=== PATIENT | female | born 1975 | race African-American/Black ===

== ENCOUNTER 2016-10-12 13:02 | Emergency (ER) | payer OTHER ==
[~2016-10-12] VITALS: Ht 160 cm; Wt 68.0 kg
[~2016-10-12 13:02] MED LIST: BACTRIM DS TAB1 EAC1 ORAL; IBUPROFEN600 MG ORAL; NAPROSYN500 M1 ORAL; NITROFURANTOIN100 M2 ORAL; NKM; NORCO 5-325 TA1 EACH ORAL; ZOFRAN ODT4 MG ORAL
[2016-10-12 13:38] VITALS: BP 133/85
[2016-10-12 13:53] LABS: BASOPHILS % (AUTO) 1.8 % (0.0-2.0); EOSINOPHILS % (AUTO) 4.1 % (0.0-3.0); MEAN CORPUSCULAR HEMOGLOBIN 30.6 PG (27.0-31.0); MEAN CORPUSCULAR HGB CONC 32.7 G/DL (32.0-36.0); MEAN CORPUSCULAR VOLUME 94 FL (80-99); MEAN PLATELET VOLUME 6.7 FL (6.5-10.1); NEUTROPHILS % (AUTO) 53.1 % (45.0-75.0); PLATELET COUNT 305 K/UL (150-450); RED BLOOD COUNT 3.96 M/UL (4.20-5.40); RED CELL DISTRIBUTION WIDTH 12.2 % (11.6-14.8); WHITE BLOOD COUNT 5.3 K/UL (4.8-10.8)
[2016-10-12 13:54] LABS: APPEARANCE,URINE CLEAR; KETONES,URINE NEGATIVE (NEGATIVE); LEUKOCYTE ESTERASE ,URINE NEGATIVE (NEGATIVE); NITRITE,URINE NEGATIVE (NEGATIVE); PH,URINE 7 (4.5-8.0); PROTEIN,URINE NEGATIVE (NEGATIVE); UROBILINOGEN,URINE NORMAL MG/DL (0.0-1.0)
--- NOTE | 2016-10-12 14:01 | Emergency Room Report ---
History of Present Illness General Chief Complaint: Vaginal Present Illness HPI The pt is a 40 yo F Presenting for a 9/10 lower abdominal pain which began 2 days prior. The patient states that she has a history of ovarian cyst. The patient states that her last normal menstrual period was one week prior and noticed heavy bleeding.The patient states that she has noticed vaginal spotting which began 2 days prior. The pain does not radiate and there are no known exacerbating or relieving factors. The patient denies any other vaginal discharge and denies dysuria, hematuria, increased urinary frequency, flank pain , nausea, vomiting, , chills Allergies: Coded Allergies: NO KNOWN ALLERGIES (Unverified Allergy, Unknown, 08/22/16) Patient History Past Medical History: see triage record Pertinent Family History: none Last Menstrual Period: last week Now: No Reviewed Nursing Documentation: PMH: Agreed, PSxH: Agreed Nursing Documentation-PMH Past Medical History: No History, Except For Hx Neurological Problems: Yes - Meningitis 1993 Hx Cerebrovascular Accident: Yes - mild stroke 2 years Review of Systems All Other Systems: negative except mentioned in HPI Physical Exam Vital Signs Date Time Temp Pulse Resp B/P Pulse Ox O2 Delivery O2 Flow Rate FiO2 10/12/16 13:10 98.2 79 18 146/87 98 10/12/16 13:38 Room Air Sp02 EP Interpretation: reviewed, normal General Appearance: no apparent distress, alert, GCS 15, non-toxic Head: normocephalic, atraumatic Eyes: bilateral eye PERRL, bilateral eye normal inspection ENT: hearing grossly normal, normal pharynx, no angioedema, normal voice Neck: full range of motion, supple/symm/no masses Respiratory: chest non-tender, lungs clear, normal breath sounds, no wheezing, speaking full sentences Gastrointestinal: soft, no mass, non-distended, no guarding, tenderness - suprapubic Genitourinary: normal inspection, no CVA tenderness Musculoskeletal: back normal, gait/station normal, normal range of motion, non- tender, calf tenderness Neurologic: alert, oriented x3, responsive, motor strength/tone normal, sensory intact, speech normal Psychiatric: judgement/insight normal, memory normal, mood/affect normal, no suicidal/homicidal ideation Skin: normal color, no rash, warm/dry, well hydrated Medical Decision Making PA Attestation Dr. Ramirez is my supervising physician. Patient management was discussed with my supervising physician Diagnostic Impression: Primary Impression: Uterine fibroid ER Course The pt is a 40 yo F Presenting for a 9/10 lower abdominal pain which began 2 days prior. Differential diagnoses considered include but not limited to ovarian torsion, ovarian abscess, PID, UTI, uterine fibroids PE: Vitals WNL. NAD. Abdomen: Normal appearance. Non distended. No ecchymosis. Normal BS.TTP over suprapubic region only. No McBurney point tenderness. No guarding. No CVA tenderness Pelvic US: Uterine fibroids. Otherwise unremarkable CBC is unremarkable. No signs of infection or anemia. Urinalysis is unremarkable. No signs of infection. Negative Patient was given Tylenol for pain with good relief. Patient will be discharged home and is informed of the ultrasound results. The patient will followup with primary care physician and [facility]. Prescription for Motrin and zofran is given Laboratory Tests Test 10/12/16 13:34 White Blood Count 5.3 K/UL (4.8-10.8) Red Blood Count 3.96 M/UL (4.20-5.40) L Hemoglobin 12.1 G/DL (12.0-16.0) Hematocrit 37.1 % (37.0-47.0) Mean Corpuscular Volume 94 FL (80-99) Mean Corpuscular Hemoglobin 30.6 PG (27.0-31.0) Mean Corpuscular Hemoglobin Concent 32.7 G/DL (32.0-36.0) Red Cell Distribution Width 12.2 % (11.6-14.8) Platelet Count 305 K/UL (150-450) Mean Platelet Volume 6.7 FL (6.5-10.1) Neutrophils (%) (Auto) 53.1 % (45.0-75.0) Lymphocytes (%) (Auto) 35.0 % (20.0-45.0) Monocytes (%) (Auto) 6.0 % (1.0-10.0) Eosinophils (%) (Auto) 4.1 % (0.0-3.0) H Basophils (%) (Auto) 1.8 % (0.0-2.0) Urine Color Pale yellow Urine Appearance Clear Urine pH 7 (4.5-8.0) Urine Specific Crosby 1.005 (1.005-1.035) Urine Protein Negative (NEGATIVE) Urine Glucose (UA) Negative (NEGATIVE) Urine Ketones Negative (NEGATIVE) Urine Occult Blood Negative (NEGATIVE) Urine Nitrite Negative (NEGATIVE) Urine Bilirubin Negative (NEGATIVE) Urine Urobilinogen Normal MG/DL (0.0-1.0) Urine Leukocyte Esterase Negative (NEGATIVE) Urine HCG, Qualitative Negative Lab Results Impression unremarkable CT/MRI/US Diagnostic Results CT/MRI/US Diagnostic Results : Imaging Test Ordered: Pelvic uS Impression Pelvic ultrasound is consistent with uterine fibroids. Otherwise unremarkable Last Vital Signs Date Time Temp Pulse Resp B/P Pulse Ox O2 Delivery O2 Flow Rate FiO2 10/12/16 13:38 98.0 80 16 133/85 99 Room Air Status: improved Disposition: HOME, SELF-CARE Condition: Improved Scripts Ondansetron* (ZOFRAN*) 4 Mg Tablet 4 MG ORAL Q6H Y for Nausea & Vomiting, #20 TAB Prov: ARNALDO ROYAL.AOrlin 10/12/16 Ibuprofen* (MOTRIN*) 600 Mg Tablet 600 MG ORAL Q8H Y for For Pain, #30 TAB 0 Refills Prov: ARNALDO ROYAL P.A. 10/12/16 Referrals: [facility],REFERRING (PCP) ARNALDO ROYAL Oct 12, 2016 14:01
[2016-10-12 15:18] VITALS: BP 136/85
[2016-10-12 17:39] VITALS: BP 124/76
[2016-10-12] MEDS ORDERED: ZOFRAN4 M3 ORAL (17:44)
[2016-10-12] MEDS ORDERED: IBUPROFEN600 MG ORAL (17:44)
[2016-10-12 18:03] VITALS: BP 136/85
--- NOTE | 2016-10-13 10:37 | Diagnostic Imaging Report ---
Indication:Lower abdominal and pelvic pain Technique: Grayscale and duplex Doppler imaging of the pelvis performed utilizing a transabdominal scan and endovaginal scan. Comparison: None Findings: There is calcified uterine body mass measuring 1.6 cm consistent with an intramural fibroid. Exophytic mass although injecting anteriorly or ventrally measuring 3.6 x 2.8 CM. The uterus is retroverted. The endometrium is 9 mm in thickness. There is a cervical nabothian cyst 8 mm in size. Both ovaries are seen and appear normal. There is some free fluid present with echoes which may be blood. Uterus is 10 x 5.3 x 6.2 CM. Right ovary 3.7 x 2.6 x 3.0 CM. Left ovary 4.2 x 3.6 x 1.7 CM. Impression: Small amount of blood within the cul-de-sac. This is probably on the basis of a ruptured hemorrhagic ovarian cyst. Several small cysts noted within both ovaries. Retroverted uterus. Uterine fibroids as described above.
== END 2016-10-12 18:03 | disposition home or self-care (01) ==
LOC: EMR 13:22
DX: D25.1 Intramural leiomyoma of uterus (principal); N83.202 Unspecified ovarian cyst, left side; N83.201 Unspecified ovarian cyst, right side; N85.4 Malposition of uterus; N88.8 Other specified noninflammatory disorders of cervix uteri; Z86.73 Personal history of transient ischemic attack (TIA), and cerebral infarction without residual deficits; Z86.61 Personal history of infections of the central nervous system
CPT/HCPCS: 36415; 76830; 76856; 81003; 81025; 85025; 99283

== ENCOUNTER 2016-11-14 13:59 | Emergency (ER) | payer OTHER ==
[~2016-11-14] VITALS: Ht 160 cm; Wt 68.0 kg
[~2016-11-14 13:59] MED LIST changes: +ZOFRAN4 M3 ORAL
[2016-11-14 14:27] VITALS: BP 137/87
[2016-11-14] MEDS ORDERED: Ketorolac 60mg Inj IM ONE (14:45)
--- NOTE | 2016-11-14 15:08 | Emergency Room Report ---
History of Present Illness General Chief Complaint: General Complaint Present Illness HPI 40-year-old female presents the emergency department complaining of mild continued dysuria status post being treated for UTI over 1.5 weeks ago. pt also reports progressive swelling and discomfort well as 7/10 pain to the dorsum of the left wrist x 2 weeks. Patient denies fall or injury. Patient reports palpable mass. Denies nausea, vomiting, fevers, chills, recent change in weight. Patient denies low back pain, hematuria abdominal pain or vaginal discharge. She denies . Denies CP, Palpitations, LOC, AMS, dizziness, Changes in Vision, Sensation, paresthesias, or a sudden severe headache. Allergies: Coded Allergies: NO KNOWN ALLERGIES (Unverified Allergy, Unknown, 08/22/16) Patient History Past Medical History: see triage record Past Surgical History: none Pertinent Family History: none Last Menstrual Period: 10/25/2016 Now: No : 8 Para: 2 Immunizations: UTD Reviewed Nursing Documentation: PMH: Agreed, PSxH: Agreed Nursing Documentation-PMH Hx Neurological Problems: Yes - Meningitis 1993 Hx Cerebrovascular Accident: Yes - mild stroke 2013 Review of Systems All Other Systems: negative except mentioned in HPI Physical Exam Vital Signs Date Time Temp Pulse Resp B/P Pulse Ox O2 Delivery O2 Flow Rate FiO2 11/14/16 14:07 98.4 70 16 137/87 99 Room Air Sp02 EP Interpretation: reviewed, normal General Appearance: no apparent distress, alert, GCS 15, non-toxic Head: normocephalic, atraumatic Eyes: bilateral eye PERRL, bilateral eye normal inspection ENT: hearing grossly normal, normal pharynx, no angioedema, normal voice Neck: full range of motion, supple/symm/no masses Respiratory: chest non-tender, lungs clear, normal breath sounds, speaking full sentences Cardiovascular #1: regular rate, rhythm, no edema Gastrointestinal: normal bowel sounds, non tender, soft, no guarding, no rebound Rectal: deferred Genitourinary: normal inspection, no CVA tenderness Musculoskeletal: back normal, gait/station normal, normal range of motion, no calf tenderness, tender - TTP to palpable nodule on the dorsum of the left wrist , no erythema, no signs of infection, pt. is NVI to affected extremity, consistent with ganglion cyst. Neurologic: alert, oriented x3, responsive, motor strength/tone normal, sensory intact, speech normal Psychiatric: judgement/insight normal, memory normal, mood/affect normal, no suicidal/homicidal ideation Skin: normal color, no rash, warm/dry, well hydrated, other - palpable nodule 1.2 cm in size to the dorsum of the left wrist. mobile. and well circumscribed. Lymphatic: no adenopathy Medical Decision Making PA Attestation Dr. Lange is my supervising Physician whom patient management has been discussed with. Diagnostic Impression: Primary Impression: Ganglion cyst of wrist Qualified Codes: M67.432 - Ganglion, left wrist Additional Impression: History of dysuria ER Course 40-year-old female presents the emergency department complaining of mild continued dysuria status post being treated for UTI in addition to swelling and discomfort well as 7/10 pain to the dorsum of the left wrist x4 days. Patient denies fall or injury. Ddx considered but are not limited to UTI, Fracture, dislocation, contusion, Sprain/Strain/Spasm, Ganglion cyst, neoplasm. Vital signs: are WNL, pt. is afebrile H&PE are most consistent with ganglion cyst of the left wrist, and dysuria intermittently s/p UTI abx treatment. ORDERS: - UA: unremarkable, no evidence of infection. ED INTERVENTIONS: - Behzad wrap applied to the left wrist by photo tech. Pt. remains neurovascularly intact. -40mg IM Toradol DISCHARGE: At this time pt. is stable for d/c to home. Will provide printed patient care instructions, and any necessary prescriptions. Care plan and follow up instructions have been discussed with the patient prior to discharge. Labs Test 11/14/16 14:15 Urine Color Pale yellow Urine Appearance Clear Urine pH 7 (4.5-8.0) Urine Specific H[place]ler 1.005 (1.005-1.035) Urine Protein Negative (NEGATIVE) Urine Glucose (UA) Negative (NEGATIVE) Urine Ketones Negative (NEGATIVE) Urine Occult Blood Negative (NEGATIVE) Urine Nitrite Negative (NEGATIVE) Urine Bilirubin Negative (NEGATIVE) Urine Urobilinogen Normal MG/DL (0.0-1.0) Urine Leukocyte Esterase Negative (NEGATIVE) Last Vital Signs Date Time Temp Pulse Resp B/P Pulse Ox O2 Delivery O2 Flow Rate FiO2 11/14/16 14:27 98.4 70 16 137/87 99 Room Air Disposition: HOME, SELF-CARE Condition: Stable Scripts Naproxen* (NAPROXEN*) 500 Mg Tablet 500 MG ORAL TWICE A WEEK, #60 TAB 0 Refills Prov: Анна Coe 11/14/16 Referrals: [facility],REFERRING (PCP) Patient Instructions: Ganglion Cyst Additional Instructions: Take medications as directed. Follow up with PCP in 3-5 days Return sooner to ED if new symptoms occur, or current symptoms become worse. - Please note that this Emergency Department Report was dictated using [employer] pattern[employer] technology software, occasionally this can lead to erroneous entry secondary to interpretation by the dictation equipment. Анна Coe Nov 14, 2016 15:07
[2016-11-14 15:12] LABS: APPEARANCE,URINE CLEAR; KETONES,URINE NEGATIVE (NEGATIVE); LEUKOCYTE ESTERASE ,URINE NEGATIVE (NEGATIVE); NITRITE,URINE NEGATIVE (NEGATIVE); PH,URINE 7 (4.5-8.0); PROTEIN,URINE NEGATIVE (NEGATIVE); UROBILINOGEN,URINE NORMAL MG/DL (0.0-1.0)
[2016-11-14] MEDS ORDERED: NAPROXEN500 M2 ORAL (15:24)
[2016-11-14 15:28] VITALS: BP 132/85
== END 2016-11-14 15:29 | disposition home or self-care (01) ==
LOC: EMR 14:43
DX: M67.432 Ganglion, left wrist (principal); Z86.61 Personal history of infections of the central nervous system; Z86.73 Personal history of transient ischemic attack (TIA), and cerebral infarction without residual deficits
CPT/HCPCS: 29260; 81003; 96372; 99283

== ENCOUNTER 2017-02-12 13:31 | Emergency (ER) | payer MEDICAID, OTHER ==
[~2017-02-12] VITALS: Ht 160 cm; Wt 67.1 kg
[~2017-02-12 13:31] MED LIST changes: +NAPROXEN500 M2 ORAL
[2017-02-12 14:17] VITALS: BP 115/76
[2017-02-12] MEDS ORDERED: IBUPROFEN600 MG ORAL (14:52)
[2017-02-12] MEDS ORDERED: GABAPENTIN300 MG ORAL (14:52)
--- NOTE | 2017-02-13 14:27 | Cardiology Report ---
APPROVED REPORT EKG Measurement Heart [id number] Normal sinus rhythm Possible Left atrial enlargement Borderline ECG
--- NOTE | 2017-02-14 12:30 | Emergency Room Report ---
History of Present Illness General Chief Complaint: Pain Source: Patient Present Illness HPI The patient is a 41-year-old female with a history of CVA 3 years prior presenting for right arm pain which began 5 days ago. Pain is described as a 6/ 10 dull ache to the right midforearm and radiates to the fingers. No known provoking relieving factors. She denies any injury to this area. She has tried Motrin which does not help. She also admits to some numbness and tingling to the area. Denies any other symptoms including nausea, vomiting, fever, chills, headache, dizziness, diaphoresis, weakness, chest pain, shortness of breath Allergies: Coded Allergies: NO KNOWN ALLERGIES (Unverified Allergy, Unknown, 08/22/16) Patient History Past Medical History: see triage record Pertinent Family History: none Last Menstrual Period: 02/11/17 Now: No Reviewed Nursing Documentation: PMH: Agreed, PSxH: Agreed Nursing Documentation-PMH Past Medical History: No Stated History Hx Neurological Problems: Yes - Meningitis 1993 Hx Cerebrovascular Accident: Yes - mild stroke 2013 Review of Systems All Other Systems: negative except mentioned in HPI Physical Exam Vital Signs Date Time Temp Pulse Resp B/P Pulse Ox O2 Delivery O2 Flow Rate FiO2 02/12/17 13:51 98.4 67 14 115/76 99 Room Air Sp02 EP Interpretation: reviewed, normal General Appearance: no apparent distress, alert, GCS 15, non-toxic Head: normocephalic, atraumatic Eyes: bilateral eye PERRL, bilateral eye normal inspection ENT: hearing grossly normal, normal pharynx, no angioedema, normal voice Neck: full range of motion, supple/symm/no masses Respiratory: chest non-tender, lungs clear, normal breath sounds, speaking full sentences Cardiovascular #1: regular rate, rhythm, no edema Musculoskeletal: back normal, gait/station normal, normal range of motion, non- tender Neurologic: alert, oriented x3, responsive, quality control auditor III-XII nml as tested, motor strength/tone normal, sensory intact, normal gait, speech normal Psychiatric: judgement/insight normal, memory normal, mood/affect normal, no suicidal/homicidal ideation Skin: normal color, no rash, warm/dry, well hydrated Medical Decision Making PA Attestation Dr. Felder is my supervising physician. Patient management was discussed with my supervising physician Diagnostic Impression: Primary Impression: Neuropathy ER Course The patient is a 41-year-old female presenting with R arm pain and numbness Differential diagnoses considered but not limited to: NE, CVA, contusion, fracture, sprain, peripheral vascular disease, carpal tunnel syndrome, among others Physical exam: Vitals within normal limits for no apparent distress CN II through XII intact. RRR. R arm: No obvious deformity. No skin changes. Full active range of motion. No atrophy. Full strength. EKG is unremarkable The patient will be discharged home and will followup with primary doctor. She is given a prescription for gabapentin. The patient may need referral EKG Diagnostic Results Rate: normal Rhythm: NSR ST Segments: no acute changes ASA given to the pt in ED: No PA Scribe Text EKG was reviewed and read with my supervising physician. No acute ST segment changes are seen. Normal rate and rhythm. No acute changes. Last Vital Signs Date Time Temp Pulse Resp B/P Pulse Ox O2 Delivery O2 Flow Rate FiO2 02/12/17 15:07 98.4 68 14 115/76 99 Room Air Status: improved Disposition: HOME, SELF-CARE Condition: Improved Scripts Ibuprofen* (MOTRIN*) 600 Mg Tablet 600 MG ORAL Q6H Y for For Pain, #30 TAB Prov: ARNALDO ROYAL 02/12/17 Gabapentin* (GABAPENTIN*) 300 Mg Capsule 300 MG ORAL THREE TIMES A DAY, #60 CAP 0 Refills Prov: ARNALDO ROYAL 02/12/17 Referrals: [facility],REFERRING Patient Instructions: Peripheral Neuropathy Additional Instructions: I discussed my findings with the patient. All questions and concerns have been answered. Treatment and medication compliance have been addressed. I advised the patient that they need to follow up with PMD in 3-5 days. Return to ED if symptoms worsen, new symptoms arise, or if needed for any reason. Patient verbalized understanding of discharge instructions. ARNALDO ROYAL February 14, 2017 12:30
== END 2017-02-12 15:07 | disposition home or self-care (01) ==
LOC: EMR 14:21
DX: G62.9 Polyneuropathy, unspecified (principal); Z86.73 Personal history of transient ischemic attack (TIA), and cerebral infarction without residual deficits; R20.0 Anesthesia of skin; R20.2 Paresthesia of skin; Z86.61 Personal history of infections of the central nervous system
CPT/HCPCS: 93005; 99284

== ENCOUNTER 2017-04-15 23:28 | Emergency (ER) | payer MEDICAID ==
[~2017-04-15] VITALS: Ht 167.6 cm; Wt 59.0 kg
[~2017-04-15 23:28] MED LIST changes: +GABAPENTIN300 MG ORAL
[2017-04-15 23:35] VITALS: BP 120/80
[2017-04-15] MEDS ORDERED: Cephalexin 500mg cap ORAL ONE (23:45)
[2017-04-15] MEDS ORDERED: IBUPROFEN600 MG ORAL (23:47)
[2017-04-15] MEDS ORDERED: KEFLEX500 MG ORAL (23:47)
[2017-04-16 00:01] VITALS: BP 120/80
--- NOTE | 2017-04-16 01:18 | Emergency Room Report ---
History of Present Illness General Chief Complaint: Skin Rash/Abscess Source: Patient Present Illness HPI 41-year-old female presents to ED complaining of pain and swelling to the right arm x3 days. States she had an insect bite on her right arm just above her elbow States there is increased pain and swelling and now radiating down her right arm. It is a 5/10, throbbing. Denies fevers or chills. Denies discharge. Notes full range of motion to the arm. No other aggravating or relieving factors. Denies any other associated symptoms Allergies: Coded Allergies: NO KNOWN ALLERGIES (Unverified Allergy, Unknown, 08/22/16) Patient History Past Medical History: CVA/TIA Pertinent Family History: none Social History: Denies: alcohol use, drug use, smoking Now: No Immunizations: UTD Reviewed Nursing Documentation: PMH: Agreed, PSxH: Agreed Nursing Documentation-PMH Past Medical History: No Stated History Hx Neurological Problems: Yes - Meningitis 1993 Hx Cerebrovascular Accident: Yes - mild stroke 2013 Review of Systems All Other Systems: negative except mentioned in HPI Physical Exam Vital Signs Date Time Temp Pulse Resp B/P Pulse Ox O2 Delivery O2 Flow Rate FiO2 04/15/17 23:35 98.1 76 18 120/80 99 Room Air Sp02 EP Interpretation: reviewed, normal General Appearance: no apparent distress, alert, GCS 15, non-toxic Head: normocephalic Eyes: bilateral eye PERRL, bilateral eye normal inspection ENT: normal ENT inspection Neck: normal inspection Respiratory: normal inspection Cardiovascular #1: normal inspection Gastrointestinal: normal inspection Rectal: deferred Genitourinary: no CVA tenderness Musculoskeletal: back normal, gait/station normal, normal range of motion, non- tender Neurologic: alert, oriented x3, responsive, motor strength/tone normal, sensory intact, speech normal Psychiatric: judgement/insight normal, memory normal, mood/affect normal, no suicidal/homicidal ideation Skin: other - induration/erythema to RUE. no fluctuance or discharge Lymphatic: normal inspection Medical Decision Making Diagnostic Impression: Primary Impression: Insect bite Qualified Codes: W57.XXXA - Bitten or stung by nonvenomous insect and other nonvenomous arthropods, initial encounter ER Course Hospital Course 41-year-old female presents to ED with redness, swelling to right arm Differential diagnoses include: Cellulitis, dermatitis, insect bite, abscess Clinical course Patient placed on stretcher. After initial history, physical exam reveals a female in no acute distress. On exam there is a site for mild erythema and induration to the right arm above the elbow. There is no fluctuance. There is no tenderness. Full range of motion is noted in the right elbow and there is no concern for any signs of infection to the joint. Given Keflex and Motrin in ED Diagnosis - bug bite stable and discharged to home with prescription for Motrin, Keflex. Instructed to followup with PMD. Instructed return to ED if symptoms recur or worsen Last Vital Signs Date Time Temp Pulse Resp B/P Pulse Ox O2 Delivery O2 Flow Rate FiO2 04/15/17 23:35 98.1 76 18 120/80 99 Room Air Status: improved Disposition: HOME, SELF-CARE Condition: Stable Scripts Ibuprofen* (MOTRIN*) 600 Mg Tablet 600 MG ORAL Q8H Y for For Pain, #30 TAB 0 Refills Prov: OSIRIS BILLS M.D. 04/15/17 Cephalexin* (KEFLEX*) 500 Mg Capsule 500 MG ORAL Q6H, #28 CAP 0 Refills Prov: OSIRIS BILLS M.D. 04/15/17 Referrals: NON PHYSICIAN (PCP) Patient Instructions: Insect Bite, [id number] OSIRIS BILLS M.D. Apr 16, 2017 01:18
== END 2017-04-16 00:01 | disposition home or self-care (01) ==
LOC: EMR 23:45
DX: S40.861A Insect bite (nonvenomous) of right upper arm, initial encounter (principal); Z86.73 Personal history of transient ischemic attack (TIA), and cerebral infarction without residual deficits; Z86.61 Personal history of infections of the central nervous system; W57.XXXA Bitten or stung by nonvenomous insect and other nonvenomous arthropods, initial encounter; Y92.9 Unspecified place or not applicable
CPT/HCPCS: 99284

== ENCOUNTER 2017-04-28 10:14 | Emergency (ER) | payer MEDICAID ==
[~2017-04-28] VITALS: Ht 160 cm; Wt 63.5 kg
[~2017-04-28 10:14] MED LIST changes: +KEFLEX500 MG ORAL
[2017-04-28] MEDS ORDERED: ACYCLOVIR400 MG ORAL (10:46)
[2017-04-28 10:52] VITALS: BP 131/85
--- NOTE | 2017-04-28 15:12 | Emergency Room Report ---
History of Present Illness General Chief Complaint: Skin Rash/Abscess Source: Patient Present Illness HPI 51-year-old female presents to ED for evaluation. Patient states she days ago she started noticing these blisters on her lip. States as one resolves the another one comes back. States pain is mild, 2/10, nonradiating. Denies any fevers or chills. Denies any discharge. Denies any sick contacts or recent travel. No other aggravating or relieving factors. Denies any other associated symptoms Allergies: Coded Allergies: NO KNOWN ALLERGIES (Unverified Allergy, Unknown, 08/22/16) Patient History Past Medical History: none Past Surgical History: none Pertinent Family History: none Social History: Denies: alcohol use, drug use, smoking Last Menstrual Period: now Now: No Immunizations: UTD Reviewed Nursing Documentation: PMH: Agreed, PSxH: Agreed Nursing Documentation-PMH Past Medical History: No History, Except For Hx Neurological Problems: Yes - Meningitis Hx Cerebrovascular Accident: Yes Review of Systems All Other Systems: negative except mentioned in HPI Physical Exam Vital Signs Date Time Temp Pulse Resp B/P Pulse Ox O2 Delivery O2 Flow Rate FiO2 04/28/17 10:26 98.2 73 18 131/85 98 Room Air Sp02 EP Interpretation: reviewed, normal General Appearance: no apparent distress, alert, GCS 15, non-toxic Head: normocephalic Eyes: bilateral eye PERRL, bilateral eye normal inspection ENT: hearing grossly normal, normal pharynx, no angioedema, normal voice Neck: normal inspection Respiratory: chest non-tender, lungs clear, normal breath sounds, speaking full sentences Cardiovascular #1: regular rate, rhythm, no edema Gastrointestinal: normal inspection Rectal: deferred Genitourinary: no CVA tenderness Musculoskeletal: normal inspection Neurologic: alert, oriented x3, responsive, motor strength/tone normal, sensory intact, speech normal Psychiatric: judgement/insight normal, memory normal, mood/affect normal, no suicidal/homicidal ideation Skin: other - vesicular lesions noted to lip. inner mouth Lymphatic: normal inspection Medical Decision Making Diagnostic Impression: Primary Impression: Cold sore ER Course Hospital Course 41-year-old female presents to ED with rash to lips, inner mouth Differential diagnoses include: Cellulitis, dermatitis, insect bite, abscess Clinical course Patient placed on stretcher. After initial history, physical exam reveals a young female in no acute distress. On exam there are multiple singular lesions noted to the lips, inner mouth. Consistent with a cold sore/herpes. We will treat with antivirals Diagnosis - cold sore stable and discharged to home with prescription for acyclovir. Instructed to followup with PMD. Instructed return to ED if symptoms recur or worsen Last Vital Signs Date Time Temp Pulse Resp B/P Pulse Ox O2 Delivery O2 Flow Rate FiO2 04/28/17 10:52 98.2 18 131/85 98 Room Air 04/28/17 10:26 73 Status: improved Disposition: HOME, SELF-CARE Condition: Stable Scripts Acyclovir* (ACYCLOVIR*) 400 Mg Tablet 400 MG ORAL TID for 10 Days, TAB Prov: OSIRIS BILLS M.D. 04/28/17 Referrals: [facility]/,REFERRING (PCP) Patient Instructions: Cold Sore, [id number] OSIRIS BILLS M.D. Apr 28, 2017 15:12
== END 2017-04-28 10:52 | disposition home or self-care (01) ==
LOC: EMR 10:50
DX: B00.1 Herpesviral vesicular dermatitis (principal); Z86.73 Personal history of transient ischemic attack (TIA), and cerebral infarction without residual deficits; Z86.61 Personal history of infections of the central nervous system
CPT/HCPCS: 99283

== ENCOUNTER 2017-06-16 09:34 | Emergency (ER) | payer MEDICAID ==
[~2017-06-16] VITALS: Ht 160 cm; Wt 66.2 kg
[~2017-06-16 09:34] MED LIST changes: +ACYCLOVIR400 MG ORAL
[2017-06-16 09:52] VITALS: BP 134/87
[2017-06-16] MEDS ORDERED: Mylanta II UD 30ml ORAL ONE (10:00)
[2017-06-16] MEDS ORDERED: Dicyclomine HCl 10mg/5ml oral soln ORAL ONE (10:00)
[2017-06-16] MEDS ORDERED: Lidocaine 2% Visc 15ml soln ORAL ONE (10:00)
[2017-06-16] MEDS ORDERED: Famotidine 20 MG/ 2ML VIAL IVP ONE (10:00)
[2017-06-16 10:30] LABS: BASOPHILS % (AUTO) 1.6 % (0.0-2.0); LYMPHOCYTES % (AUTO) 39.5 % (20.0-45.0); MEAN CORPUSCULAR HEMOGLOBIN 30.8 PG (27.0-31.0); MEAN CORPUSCULAR HGB CONC 31.9 G/DL (32.0-36.0); MEAN CORPUSCULAR VOLUME 97 FL (80-99); MEAN PLATELET VOLUME 6.5 FL (6.5-10.1); MONOCYTES % (AUTO) 4.6 % (1.0-10.0); NEUTROPHILS % (AUTO) 50.2 % (45.0-75.0); PLATELET COUNT 320 K/UL (150-450); RED BLOOD COUNT 4.39 M/UL (4.20-5.40); RED CELL DISTRIBUTION WIDTH 11.6 % (11.6-14.8); WHITE BLOOD COUNT 4.9 K/UL (4.8-10.8)
[2017-06-16 10:38] LABS: APPEARANCE,URINE CLEAR; KETONES,URINE NEGATIVE (NEGATIVE); LEUKOCYTE ESTERASE ,URINE NEGATIVE (NEGATIVE); NITRITE,URINE NEGATIVE (NEGATIVE); PH,URINE 8 (4.5-8.0); PROTEIN,URINE NEGATIVE (NEGATIVE); UROBILINOGEN,URINE NORMAL MG/DL (0.0-1.0)
[2017-06-16] MEDS ORDERED: PEPCID40 MG PO (10:39)
--- NOTE | 2017-06-16 10:39 | Emergency Room Report ---
History of Present Illness General Chief Complaint: Abdominal Pain Source: Patient Present Illness HPI 41-year-old female history of gastritis presenting with abdominal pain for one week. Patient epigastric area for, it is burning in nature, intermittent, worse with eating. Denies any nausea or vomiting. Denies any fever or chills. Patient states that she is experiencing similar pain in the past, states that she had endoscopy 5 years ago which showed gastritis. At that time patient states that she completed an antibiotic regimen. Patient also stating that she has had irregular periods for the last few months , states that she is on her third day of bleeding, states that she has to change more than 5 pads a day. Denies any shortness of breath dizziness lightheadedness or syncopal episodes. Allergies: Coded Allergies: NO KNOWN ALLERGIES (Unverified Allergy, Unknown, 08/22/16) Patient History Past Medical History: see triage record Past Surgical History: none Pertinent Family History: none Last Menstrual Period: on period Reviewed Nursing Documentation: PMH: Agreed, PSxH: Agreed Nursing Documentation-PMH Past Medical History: No Stated History Hx Cardiac Problems: No - Ovarina cyst, uterine fibroid Hx Hypertension: No Hx Pacemaker: No Hx Asthma: No Hx COPD: No Hx Diabetes: No Hx Cancer: No Hx Gastrointestinal Problems: Yes - gastritis Hx Dialysis: No History Of Psychiatric Problem: No Hx Neurological Problems: Yes - Meningitis Hx Cerebrovascular Accident: Yes - 'mild stroke' Hx Seizures: No Review of Systems All Other Systems: negative except mentioned in HPI Physical Exam Vital Signs Date Time Temp Pulse Resp B/P (MAP) Pulse Ox O2 Delivery O2 Flow Rate FiO2 06/16/17 09:40 98.2 87 16 134/87 100 Room Air Sp02 EP Interpretation: reviewed, normal General Appearance: normal inspection, well appearing, no apparent distress, alert, GCS 15, non-toxic Head: normocephalic, atraumatic Eyes: bilateral eye normal inspection, bilateral eye PERRL, bilateral eye EOMI ENT: normal ENT inspection, normal pharynx, normal voice, moist mucus membranes Neck: normal inspection, full range of motion, supple Respiratory: normal inspection, lungs clear, normal breath sounds, no respiratory distress, no retraction, no wheezing, speaking full sentences, chest symmetrical Cardiovascular #1: normal inspection, regular rate, rhythm, no edema, normal capillary refill Cardiovascular #2: 2+ radial (R), 2+ radial (L) Gastrointestinal: normal inspection, non tender, soft, non-distended, no guarding Musculoskeletal: normal inspection, back normal, normal range of motion, non- tender Neurologic: normal inspection, alert, oriented x3, responsive, motor strength/ tone normal, sensory intact, normal gait, speech normal Psychiatric: normal inspection, judgement/insight normal, memory normal Skin: normal inspection, normal color, no rash, warm/dry, well hydrated, normal turgor Medical Decision Making Diagnostic Impression: Primary Impression: Epigastric abdominal pain Additional Impression: Menorrhagia ER Course 41-year-old female with epigastric pain for one week Differential Diagnosis: Gastritis, gastroenteritis, cholecystitis, appendicitis, diverticulitis, cardiac , UTI/pyelo At this time abdomen is soft nontender, not likely to have acute intra- abdominal surgical pathology, will hold CT/imaging for now. Plan: Basic labs, ua, Pepcid, maalox, pain control, IVF ER course: Patient has remained stable during ED stay. Pain improved. Repeat abdominal exam is nontender. Tolerating PO Disposition: Patient is to be discharged to home. Prescriptions given are pepcid Patient is instructed to follow up with their primary care doctor within 5 days. Patient is instructed to follow up with gastroenterology within 3 days. Strict return precautions discussed with patient such as fever, chills, worsening/severe abdominal pain, nausea, vomiting, black or bloody stools, which may indicate severe illness. Patient verbalizes understanding and agrees with plan. Please note that this Emergency Department Report was dictated using [employer] technology software, occasionally this can lead to erroneous entry secondary to interpretation by the dictation equipment Laboratory Tests Test 06/16/17 10:00 06/16/17 10:05 Urine Color Pale yellow Urine Appearance Clear Urine pH 8 (4.5-8.0) Urine Specific [place] 1.010 (1.005-1.035) Urine Protein Negative (NEGATIVE) Urine Glucose (UA) Negative (NEGATIVE) Urine Ketones Negative (NEGATIVE) Urine Occult Blood 4+ (NEGATIVE) H Urine Nitrite Negative (NEGATIVE) Urine Bilirubin Negative (NEGATIVE) Urine Urobilinogen Normal MG/DL (0.0-1.0) Urine Leukocyte Esterase Negative (NEGATIVE) Urine RBC 2-4 /HPF (0 - 2) H Urine WBC 0-2 /HPF (0 - 2) Urine Squamous Epithelial Cells Occasional /LPF Urine Bacteria Occasional /HPF (NONE) Urine HCG, Qualitative Negative White Blood Count 4.9 K/UL (4.8-10.8) Red Blood Count 4.39 M/UL (4.20-5.40) Hemoglobin 13.5 G/DL (12.0-16.0) Hematocrit 42.4 % (37.0-47.0) Mean Corpuscular Volume 97 FL (80-99) Mean Corpuscular Hemoglobin 30.8 PG (27.0-31.0) Mean Corpuscular Hemoglobin Concent 31.9 G/DL (32.0-36.0) L Red Cell Distribution Width 11.6 % (11.6-14.8) Platelet Count 320 K/UL (150-450) Mean Platelet Volume 6.5 FL (6.5-10.1) Neutrophils (%) (Auto) 50.2 % (45.0-75.0) Lymphocytes (%) (Auto) 39.5 % (20.0-45.0) Monocytes (%) (Auto) 4.6 % (1.0-10.0) Eosinophils (%) (Auto) 4.0 % (0.0-3.0) H Basophils (%) (Auto) 1.6 % (0.0-2.0) Sodium Level 140 mEQ/L (135-145) Potassium Level 4.1 mEQ/L (3.4-4.9) Chloride Level 103 mEQ/L (98-107) Carbon Dioxide Level 27 mEQ/L (20-30) Anion Gap 10 (5-15) Blood Urea Nitrogen 4 mg/dL (7-23) L Creatinine 0.8 mg/dL (0.5-0.9) Estimate Glomerular Filtration Rate > 60 mL/min (>60) Glucose Level 136 mg/dL (74-106) H Calcium Level 9.4 mg/dL (8.6-10.2) Total Bilirubin 0.5 mg/dL (0.0-1.2) Aspartate Amino Transferase (AST) 12 U/L (5-40) Alanine Aminotransferase (ALT) 5 U/L (3-33) Alkaline Phosphatase 62 U/L (35-104) Total Protein 7.5 g/dL (6.6-8.7) Albumin 4.3 g/dL (3.5-5.2) Globulin 3.2 g/dL Albumin/Globulin Ratio 1.3 (1.0-2.7) Lipase 22 U/L (< 60) Last Vital Signs Date Time Temp Pulse Resp B/P (MAP) Pulse Ox O2 Delivery O2 Flow Rate FiO2 06/16/17 09:52 98.2 69 16 134/87 100 Room Air Scripts Famotidine (PEPCID) 40 Mg Tablet 40 MG PO DAILY for 14 Days, #14 TAB 0 Refills Prov: Kira Lindsey M.D. 06/16/17 Patient Instructions: Abdominal Pain, Adult, Menorrhagia, [id number] Kira Lindsey M.D. Jun 16, 2017 10:39
[2017-06-16 10:44] LABS: ALANINE AMINOTRANSFERASE 5 U/L (3-33); ALBUMIN/GLOBULIN RATIO 1.3 (1.0-2.7); ANION GAP 10 (5-15); ASPARTATE AMINO TRANSFERASE 12 U/L (5-40); CALCIUM 9.4 mg/dL (8.6-10.2); CARBON DIOXIDE 27 mEQ/L (20-30); CHLORIDE 103 mEQ/L (98-107); CREATININE 0.8 mg/dL (0.5-0.9); GLOMERULAR FILTRATION RATE > 60 mL/min (>60); HEMOLYSIS 0; LIPASE 22 U/L (< 60); POTASSIUM 4.1 mEQ/L (3.4-4.9); SODIUM 140 mEQ/L (135-145); TOTAL PROTEIN 7.5 g/dL (6.6-8.7)
[2017-06-16 10:54] LABS: BACTERIA,URINE OCCASIONAL /HPF; SQUAMOUS EPITHELIAL CELL,UR OCCASIONAL /LPF (NONE/OCC); WBC,URINE 0-2 /HPF (0 - 2)
[2017-06-16 11:34] VITALS: BP 131/81
[2017-06-16 11:36] VITALS: BP 131/81
== END 2017-06-16 11:57 | disposition home or self-care (01) ==
LOC: EMR 10:00
DX: R10.13 Epigastric pain (principal); N92.0 Excessive and frequent menstruation with regular cycle; Z86.73 Personal history of transient ischemic attack (TIA), and cerebral infarction without residual deficits
CPT/HCPCS: 36415; 80053; 81003; 81025; 83690; 85025; 96374; 96375; 99284; J7040; S0028

== ENCOUNTER 2017-10-19 19:06 | Emergency (ER) | payer MEDICAID ==
[~2017-10-19] VITALS: Ht 160 cm; Wt 63.5 kg
[~2017-10-19 19:06] MED LIST changes: +PEPCID40 MG PO
[2017-10-19] MEDS ORDERED: Cyclobenzaprine 10mg Tab ORAL ONE (19:30)
[2017-10-19] MEDS ORDERED: Ketorolac 60mg Inj IM ONE (19:30)
[2017-10-19] MEDS ORDERED: ROBAXIN-750750 MG PO (20:08)
[2017-10-19] MEDS ORDERED: IBUPROFEN600 MG ORAL (20:08)
[2017-10-19 20:30] VITALS: BP 131/78
--- NOTE | 2017-10-19 22:04 | Emergency Room Report ---
History of Present Illness General Chief Complaint: Back Pain-No Injury Source: Patient Present Illness HPI The patient is a 41-year-old female presenting for right upper back pain as well as right-sided lower back pain. This began yesterday for no known reason. He denies any injury to the area. Pain is 8/10 dull ache and does not radiate. Worse with movement. She has not tried any pain medications. She denies other symptoms including fever, chills, cough, abdominal pain, diarrhea, dysuria Allergies: Coded Allergies: NO KNOWN ALLERGIES (Unverified Allergy, Unknown, 08/22/16) Patient History Past Medical History: see triage record Pertinent Family History: none Last Menstrual Period: 10/02/17 Now: No Reviewed Nursing Documentation: PMH: Agreed, PSxH: Agreed Nursing Documentation-PMH Past Medical History: No History, Except For Hx Cardiac Problems: No - Ovarinan cyst, uterine fibroid Hx Hypertension: No Hx Pacemaker: No Hx Asthma: No Hx COPD: No Hx Diabetes: No Hx Cancer: No Hx Gastrointestinal Problems: Yes - Gastritis Hx Dialysis: No Hx Neurological Problems: Yes - Meningitis Hx Cerebrovascular Accident: Yes Hx Seizures: No Review of Systems All Other Systems: negative except mentioned in HPI Physical Exam Vital Signs Date Time Temp Pulse Resp B/P (MAP) Pulse Ox O2 Delivery O2 Flow Rate FiO2 10/19/17 19:11 99.0 73 16 131/78 99 Sp02 EP Interpretation: reviewed, normal General Appearance: no apparent distress, alert, GCS 15, non-toxic Head: normocephalic, atraumatic Eyes: bilateral eye normal inspection, bilateral eye PERRL ENT: hearing grossly normal, normal pharynx, no angioedema, normal voice Neck: tender lateral - R Musculoskeletal: back normal, gait/station normal, normal range of motion, tender - R lumbar paraspinal muscles Neurologic: alert, oriented x3, responsive, motor strength/tone normal, sensory intact, speech normal Psychiatric: judgement/insight normal, memory normal, mood/affect normal, no suicidal/homicidal ideation Skin: normal color, no rash, warm/dry, well hydrated Medical Decision Making PA Attestation Dr. Ramirez is my supervising physician. Patient management was discussed with my supervising physician Diagnostic Impression: Primary Impression: Muscle strain ER Course The patient is a 41-year-old female presenting for right upper back pain as well as right-sided lower back pain Ddx considered include but not limited to sprain/strain, fracture, contusion PE: NAD TTP over R cervical paraspinal muscles. No midline TTP. Full AROM intact Tenderness to palpation over the right trapezius. Full active range of motion of the neck and shoulder intact. No midline tenderness of lumbar spine. Normal gait The patient is given IM Toradol and Flexeril and states that she is feeling much better. She'll be discharged home with prescription for Motrin and Robaxin. ER precautions given Last Vital Signs Date Time Temp Pulse Resp B/P (MAP) Pulse Ox O2 Delivery O2 Flow Rate FiO2 10/19/17 20:30 99.0 16 131/78 99 10/19/17 19:11 73 Status: improved Disposition: HOME, SELF-CARE Condition: Improved Scripts Methocarbamol* (ROBAXIN-750*) 750 Mg Tablet 750 MG PO TID, #21 TAB 0 Refills Prov: ARNALDO ROYAL P.A. 10/19/17 Ibuprofen* (MOTRIN*) 600 Mg Tablet 600 MG ORAL Q8H Y for For Pain, #30 TAB 0 Refills Prov: ARNALDO ROYAL P.A. 10/19/17 [facility]: [facility],REF (PCP) Patient Instructions: Back Pain, Adult Additional Instructions: I discussed my findings with the patient. All questions and concerns have been answered. Treatment and medication compliance have been addressed. I advised the patient that they need to follow up with PMD in 3-5 days. Return to ED if pain remains or worsens, numbness or tingling occurs, new rash is noticed, fever is noticed, or if needed for any reason. Patient verbalized understanding of discharge instructions. ARNALDO ROYAL Oct 19, 2017 22:04
== END 2017-10-19 20:30 | disposition home or self-care (01) ==
LOC: EMR 19:26
DX: S29.012A Strain of muscle and tendon of back wall of thorax, initial encounter (principal); S39.012A Strain of muscle, fascia and tendon of lower back, initial encounter; X58.XXXA Exposure to other specified factors, initial encounter; Y92.9 Unspecified place or not applicable; Z86.73 Personal history of transient ischemic attack (TIA), and cerebral infarction without residual deficits
CPT/HCPCS: 96372; 99284

== ENCOUNTER 2017-11-07 22:07 | Emergency (ER) | payer MEDICAID ==
[~2017-11-07] VITALS: Ht 160 cm; Wt 64.4 kg
[~2017-11-07 22:07] MED LIST changes: +ROBAXIN-750750 MG PO
[2017-11-07 23:19] LABS: APPEARANCE,URINE CLEAR; BILIRUBIN, URINE NEGATIVE (NEGATIVE); COLOR,URINE PALE YELLOW; GLUCOSE, URINE (UA) NEGATIVE (NEGATIVE); KETONES,URINE NEGATIVE (NEGATIVE); LEUKOCYTE ESTERASE ,URINE NEGATIVE (NEGATIVE); NITRITE,URINE NEGATIVE (NEGATIVE); PH,URINE 6 (4.5-8.0); PROTEIN,URINE NEGATIVE (NEGATIVE); UROBILINOGEN,URINE NORMAL MG/DL (0.0-1.0)
[2017-11-07] MEDS ORDERED: IBUPROFEN600 MG ORAL (23:38)
--- NOTE | 2017-11-07 23:39 | Emergency Room Report ---
History of Present Illness General Chief Complaint: Chest Pain Source: Patient Present Illness HPI Is a 41-year-old female with no cerumen past medical history. She presents with chief complaint of chest pain ongoing for a week. Also with a cough and congestion. No nausea no vomiting. No fever or chills. Denies any diaphoresis.. Denies any shortness of breath. Denies any exertional component. Allergies: Coded Allergies: NO KNOWN ALLERGIES (Unverified Allergy, Unknown, 08/22/16) Patient History Past Medical History: see triage record, old chart reviewed Past Surgical History: other Pertinent Family History: none Social History: Denies: smoking Last Menstrual Period: oct 26 Now: No : 6 Para: 4 Immunizations: other Reviewed Nursing Documentation: PMH: Agreed, PSxH: Agreed Nursing Documentation-PMH Hx Cardiac Problems: No - Ovarinan cyst, uterine fibroid Hx Hypertension: No Hx Pacemaker: No Hx Asthma: No Hx COPD: No Hx Diabetes: No Hx Cancer: No Hx Gastrointestinal Problems: Yes - Gastritis Hx Dialysis: No Hx Neurological Problems: Yes - Meningitis Hx Cerebrovascular Accident: Yes Hx Seizures: No Review of Systems Eye: Denies: eye pain, blurred vision ENT: Reports: nose congestion, Denies: ear pain, throat swelling Respiratory: Reports: cough, Denies: shortness of breath Cardiovascular: Reports: chest pain, Denies: palpitations Gastrointestinal: Denies: abdominal pain, diarrhea, nausea, vomiting Musculoskeletal: Denies: back pain, joint pain Skin: Denies: rash Neurological: Denies: headache, numbness Endocrine: Denies: increased thirst, increased urine Hematologic/Lymphatic: Denies: easy bruising All Other Systems: negative except mentioned in HPI Physical Exam Vital Signs Date Time Temp Pulse Resp B/P (MAP) Pulse Ox O2 Delivery O2 Flow Rate FiO2 11/07/17 22:15 97.9 75 18 131/76 98 vitals normal Sp02 EP Interpretation: reviewed, normal General Appearance: well appearing, no apparent distress, alert Head: normocephalic, atraumatic Eyes: bilateral eye PERRL, bilateral eye EOMI ENT: hearing grossly normal, normal pharynx Neck: full range of motion, supple, no meningismus Respiratory: chest non-tender, lungs clear, normal breath sounds Cardiovascular #1: regular rate, rhythm, no murmur Gastrointestinal: normal bowel sounds, non tender, no mass, no organomegaly, no bruit, non-distended Musculoskeletal: back normal, gait/station normal, normal range of motion Psychiatric: mood/affect normal Skin: warm/dry Medical Decision Making Diagnostic Impression: Primary Impression: Upper respiratory infection Qualified Codes: J06.9 - Acute upper respiratory infection, unspecified Additional Impression: Chest pain Qualified Codes: R07.9 - Chest pain, unspecified ER Course Patient present with atypical chest pain probably secondary to a burst or infection. She looks well. No evidence of ACS, PE, dissection to name a few. We'll discharge home. EKG Diagnostic Results Rate: normal Rhythm: NSR ST Segments: no acute changes Rhythm Strip Diag. Results Rhythm Strip Time: 23:45 EP Interpretation: yes Rate: 60 Rhythm: NSR, no PVC's, no ectopy Chest X-Ray Diagnostic Results Chest X-Ray Diagnostic Results : Chest X-Ray Ordered: Yes # of Views/Limited/Complete: 1 View Indication: Chest Pain EP Interpretation: Yes Interpretation: no consolidation, no effusion, no pneumothorax, no acute cardiopulmonary disease Impression: No acute disease Electronically Signed by: Lars Palacios MD Last Vital Signs Date Time Temp Pulse Resp B/P (MAP) Pulse Ox O2 Delivery O2 Flow Rate FiO2 11/07/17 22:15 97.9 75 18 131/76 98 Status: improved Disposition: HOME, SELF-CARE Condition: Stable Patient Instructions: Nonspecific Chest Pain Additional Instructions: Follow up with your doctor in 7 days. Return if worse. LARS PALACIOS M.D. Nov 07, 2017 23:39
[2017-11-07 23:50] VITALS: BP 135/75
[2017-11-07 23:53] VITALS: BP 135/75
--- NOTE | 2017-11-08 12:51 | Diagnostic Imaging Report ---
Indication: Chest pain Technique: XRAY Chest 1v Comparison: None Findings: Heart size and mediastinal contours are within normal limits given technique. There is no focal consolidation, pneumothorax or pleural effusion. Osseous structures demonstrate no acute abnormality. Impression: No radiographic evidence of acute cardiopulmonary disease.
--- NOTE | 2017-11-08 17:53 | Cardiology Report ---
APPROVED REPORT EKG Measurement Heart [id number] Normal sinus rhythm Normal ECG
== END 2017-11-07 23:53 | disposition home or self-care (01) ==
LOC: EMR 22:33
DX: J06.9 Acute upper respiratory infection, unspecified (principal); R07.89 Other chest pain; Z86.73 Personal history of transient ischemic attack (TIA), and cerebral infarction without residual deficits
CPT/HCPCS: 71045; 80307; 81003; 93005; 99283

== ENCOUNTER 2018-02-21 10:04 | Emergency (ER) | payer MEDICAID ==
[~2018-02-21] VITALS: Ht 160 cm; Wt 63.5 kg
[2018-02-21] MEDS ORDERED: NKM (10:13)
[2018-02-21 10:18] VITALS: BP 126/76
[2018-02-21] MEDS ORDERED: PEPCID AC20 M2 PO (11:00)
--- NOTE | 2018-02-21 11:04 | Emergency Room Report ---
History of Present Illness General Chief Complaint: Chest Pain Source: Patient, Medical Record Present Illness HPI Patient present with complaints of midsternal chest pain Reports that there is burning sensation starting in the epigastric area Comes into the middle of the chest area Patient also feels that she has scratchy voice Reports that she has had this problem several times patient was seen at [facility] about 4-5 weeks ago Reports that she was told the same thing regarding chest pain and not being sure exactly what the cause was denies any vomiting or diarrhea denies any fevers or chills Denies any change with position patient had a recent URI Allergies: Coded Allergies: NO KNOWN ALLERGIES (Unverified Allergy, Unknown, 08/22/16) Patient History Past Medical History: see triage record Pertinent Family History: none Last Menstrual Period: 02/12/18 Reviewed Nursing Documentation: PMH: Agreed; PSxH: Agreed Nursing Documentation-PMH Past Medical History: No History, Except For Hx Cardiac Problems: No - Ovarinan cyst, uterine fibroid Hx Hypertension: No Hx Pacemaker: No Hx Asthma: No Hx COPD: No Hx Diabetes: No Hx Cancer: No Hx Gastrointestinal Problems: Yes - Gastritis Hx Dialysis: No Hx Neurological Problems: Yes - Meningitis Hx Cerebrovascular Accident: Yes - 2013 Hx Seizures: No Review of Systems All Other Systems: negative except mentioned in HPI Physical Exam Vital Signs Date Time Temp Pulse Resp B/P (MAP) Pulse Ox O2 Delivery O2 Flow Rate FiO2 02/21/18 10:08 98.3 63 18 141/71 100 Room Air 98.2 Sp02 EP Interpretation: reviewed, normal General Appearance: well appearing, no apparent distress Head: normocephalic, atraumatic Eyes: bilateral eye PERRL, bilateral eye EOMI ENT: hearing grossly normal, normal pharynx, TMs + canals normal, uvula midline Neck: full range of motion, supple, no meningismus, no bony tend Respiratory: lungs clear, normal breath sounds, no rhonchi, no respiratory distress, no retraction, no accessory muscle use Cardiovascular #1: normal peripheral pulses, regular rate, rhythm, no edema, no gallop, no JVD, no murmur Gastrointestinal: normal bowel sounds, non tender, soft, no mass, no organomegaly, non-distended, no guarding, no hernia, no pulsatile mass, no rebound Genitourinary: no CVA tenderness Musculoskeletal: normal inspection Neurologic: oriented x3, responsive, [facility] [employer] [facility] III-XII nml as tested, motor strength/ tone normal, sensory intact Psychiatric: mood/affect normal Skin: normal color, no rash, warm/dry, palpation normal Lymphatic: normal inspection, no adenopathy Medical Decision Making Diagnostic Impression: Primary Impression: Chest pain Additional Impression: esophagitis ER Course Patient is a fairly complex patient with multiple differential to consideration including but not limited to cardiac cardiopulmonary and vascular emergencies EKG was obtained which is normal Patient's description of the discomfort presentation Is consistent with reflux and esophagitis as well Discussing possible endoscopy patient reports that she has had that done several years ago There is likely a correlation between this Otherwise patient remains hemodynamically stable I do not suspect cardiac pathology and patient stable for close outpatient follow-up EKG Diagnostic Results Rate: normal Rhythm: NSR ST Segments: no acute changes Rhythm Strip Diag. Results EP Interpretation: yes Rate: 67 Rhythm: NSR, no PVC's, no ectopy Last Vital Signs Date Time Temp Pulse Resp B/P (MAP) Pulse Ox O2 Delivery O2 Flow Rate FiO2 02/21/18 10:18 59 13 Room Air 02/21/18 10:18 98.2 126/76 97 98.2 Status: improved Disposition: HOME, SELF-CARE Condition: Improved Scripts Famotidine (PEPCID AC) 20 Mg Tablet 20 MG PO DAILY, #20 TAB Prov: Neris Glasgow DO 02/21/18 Referrals: NON PHYSICIAN (PCP) Patient Instructions: Nonspecific Chest Pain, Esophagitis Additional Instructions: Patient is provided with the discharge instructions notified to follow up with primary doctor in the next 2-3 days otherwise return to the er with any worsening symptoms. Please note that this report is being documented using [email or web address] technology. This can lead to erroneous entry secondary to incorrect interpretation by the dictating instrument. Neris Glasgow DO February 21, 2018 11:04
[2018-02-21 11:10] VITALS: BP 111/72
--- NOTE | 2018-02-22 22:36 | Cardiology Report ---
APPROVED REPORT EKG Measurement Heart [id number] Normal sinus rhythm Normal ECG
== END 2018-02-21 11:10 | disposition home or self-care (01) ==
LOC: EMR 10:48
DX: R07.89 Other chest pain (principal); K20.9 Esophagitis, unspecified; Z86.61 Personal history of infections of the central nervous system
CPT/HCPCS: 93005; 99283

== ENCOUNTER 2018-03-14 14:35 | Emergency (ER) | payer MEDICAID ==
[~2018-03-14] VITALS: Ht 160 cm; Wt 63.5 kg
[~2018-03-14 14:35] MED LIST changes: +PEPCID AC20 M2 PO
[2018-03-14 14:52] VITALS: BP 120/76
[2018-03-14] MEDS ORDERED: CEPHALEXIN500 MG ORAL (15:11)
[2018-03-14] MEDS ORDERED: BACTRIM DS TAB1 EAC1 ORAL (15:11)
[2018-03-14] MEDS ORDERED: BENADRYL25 MG ORAL (15:11)
[2018-03-14] MEDS ORDERED: HYDROCORTISONE-30 GM TOPIC (15:11)
--- NOTE | 2018-03-14 15:11 | Emergency Room Report ---
History of Present Illness General Chief Complaint: Skin Rash/Abscess Source: Patient, Medical Record Present Illness HPI 42-year-old female patient presents ER complaining of bug bites on her bilateral lower legs since this morning. reports noticed bug bites getting out of bed this morning. She denies seeing any bugs. Reports itchiness. Denies taking any medications. Reports one large bite on right thigh, denies drainage. Denies bleeding. Denies fever, chest pain, shortness of breath, vomiting. Denies abdominal pain. Denies history of diabetes. Allergies: Coded Allergies: NO KNOWN ALLERGIES (Unverified Allergy, Unknown, 08/22/16) Patient History Past Medical History: see triage record Last Menstrual Period: 02/07/18 Reviewed Nursing Documentation: PMH: Agreed; PSxH: Agreed Nursing Documentation-PMH Past Medical History: No History, Except For Hx Cardiac Problems: No - Ovarinan cyst, uterine fibroid Hx Hypertension: No Hx Pacemaker: No Hx Asthma: No Hx COPD: No Hx Diabetes: No Hx Cancer: No Hx Gastrointestinal Problems: Yes - Gastritis Hx Dialysis: No Hx Neurological Problems: Yes - Meningitis Hx Cerebrovascular Accident: Yes - 2013 Hx Seizures: No Review of Systems All Other Systems: negative except mentioned in HPI Physical Exam Vital Signs Date Time Temp Pulse Resp B/P (MAP) Pulse Ox O2 Delivery O2 Flow Rate FiO2 03/14/18 14:38 97.9 83 18 120/76 96 Room Air 97.9 Sp02 EP Interpretation: reviewed, normal General Appearance: well appearing, no apparent distress, alert, GCS 15, non- toxic Head: normocephalic, atraumatic ENT: hearing grossly normal, normal pharynx, no angioedema, normal voice, uvula midline, moist mucus membranes Neck: full range of motion Respiratory: lungs clear, normal breath sounds, no rhonchi, no respiratory distress, no accessory muscle use, no wheezing, speaking full sentences Cardiovascular #1: regular rate, rhythm, no edema Musculoskeletal: back normal, digits/nails normal, gait/station normal, normal range of motion, non-tender Neurologic: alert, oriented x3, responsive, motor strength/tone normal, sensory intact Psychiatric: mood/affect normal Skin: other - right anterior medial thigh: 4 cm area of erythema consistent with cellulitis, no central clearing, no fluctuance, no vesicles or blisters; Four 1-2 cm bug bites on right knee, left lower extremity and left foot, and right forearm, mild surrounding erythema, no central clearing, no vesicles, does not come to a point, No pus, no bleeding, No fluctuance Medical Decision Making PA Attestation Dr. Glasgow is my supervising Physician whom patient management has been discussed with. Diagnostic Impression: Primary Impression: Bug bite ER Course Pt. presents to the ED c/o bug bites. Ddx considered but are not limited to rash, cellulitis, abscess, atopic dermatitis. Vital signs: are WNL, pt. is afebrile ER COURSE: right anterior thigh physical exam consistent with early cellulitis, will provide antibiotic treatment. no induration, low suspicion for abscess, does not require drainage at this time. No systemic symptoms, no fever, patient does not require admission or treatment with IV antibiotics. instructed patient will apply cool compresses. Benadryl causes drowsiness, will not in ER at this time because patient is driving home, instruct patient to take medication when she gets home. Clean all clothes and bedding at home. Apply small amount of hydrocortisone to affected areas to help with itching symptoms. Apply cool compresses. ER precautions given, return to ER for new or worsening of symptoms including but not limited to chest pain, shortness of breath, intractable vomiting, worsening swelling, red streaking. follow-up with PCP in 3-5 days for wound check. DISCHARGE: -Rx provided for Keflex -Rx provided for Bactrim -Rx provided for Benadryl SE drowsiness -rx provided for hydrocortisone cream At this time pt. is stable for d/c to home. Patient resting comfortably in no acute distress, nontoxic appearing. Will provide printed patient care instructions, and any necessary prescriptions. Patient instructed to complete current course of antibiotics. Care plan and follow up instructions have been discussed with the patient prior to discharge. Patient instructed to follow-up with primary care provider in 3 - 5 days and discuss further referral to trimmer operator three knife and vascular physician. Patient questions asked and answered. ER precautions given. Patient instructed to return to ER immediately for any new or worsening of symptoms including but not limited to increasing SOB, persistent fever, intractable vomiting, calf pain. - Please note that this Emergency Department Report was dictated using [employer]ag[employer]et o type operator technology software, occasionally this can lead to erroneous entry secondary to interpretation by the dictation equipment. Last Vital Signs Date Time Temp Pulse Resp B/P (MAP) Pulse Ox O2 Delivery O2 Flow Rate FiO2 03/14/18 14:52 97.9 18 120/76 96 Room Air 97.9 03/14/18 14:38 83 Disposition: HOME, SELF-CARE Condition: Stable Scripts Hydrocortisone/Aloe Vera 1%* (HYDROCORTISONE-ALOE 1% CREAM*) Y Cr 1 APPLIC TOPIC BID PRN for Itching, #30 GM Prov: Modesto Marks 03/14/18 Trimethoprim/Sulfamethoxazole 160/800* (BACTRIM DS TABLET*) 1 Each Tablet 1 TAB ORAL TWICE A DAY for 7 Days, #14 TAB Prov: Modesto Marks 03/14/18 Diphenhydramine Hcl* (BENADRYL*) 25 Mg Capsule 25 MG ORAL DAILY PRN for Itching, #30 CAP Prov: Modesto Marks 03/14/18 Cephalexin* (KEFLEX*) 500 Mg Capsule 500 MG ORAL EVERY 12 HOURS, #14 CAP 0 Refills Prov: Modesto Marks 03/14/18 Patient Instructions: Cellulitis, [id number], Insect Bite, [id number] Additional Instructions: Followup with primary care provider in 3 -5 days. Take medications as directed. Apply cool compresses to affected areas. Apply small amount of hydrocortisone cream to affected areas. Benadryl may cause drowsiness, do not take prior to drinking, driving, operating machinery. Patient questions asked and answered. ER precautions given, patient instructed to return to ER immediately for any new or worsening of symptoms including but not limited to fever, chest pain, shortness breath, intractable vomiting, red streaking, spreading of skin infection. Modesto Marks Mar 14, 2018 15:11
[2018-03-14 15:57] VITALS: BP 129/73
== END 2018-03-14 15:45 | disposition home or self-care (01) ==
LOC: EMR 15:09
DX: S80.261A Insect bite (nonvenomous), right knee, initial encounter (principal); S90.862A Insect bite (nonvenomous), left foot, initial encounter; S50.861A Insect bite (nonvenomous) of right forearm, initial encounter; W57.XXXA Bitten or stung by nonvenomous insect and other nonvenomous arthropods, initial encounter; Y92.9 Unspecified place or not applicable; L03.115 Cellulitis of right lower limb; Z86.73 Personal history of transient ischemic attack (TIA), and cerebral infarction without residual deficits; Z86.61 Personal history of infections of the central nervous system
CPT/HCPCS: 99284

== ENCOUNTER 2018-04-10 01:23 | Emergency (ER) | payer MEDICAID ==
[~2018-04-10] VITALS: Ht 160 cm; Wt 64.9 kg
[~2018-04-10 01:23] MED LIST changes: +BENADRYL25 MG ORAL; +CEPHALEXIN500 MG ORAL; +HYDROCORTISONE-30 GM TOPIC
[2018-04-10] MEDS ORDERED: BENADRYL25 MG ORAL (02:43)
[2018-04-10] MEDS ORDERED: CEPHALEXIN500 MG ORAL (02:43)
[2018-04-10] MEDS ORDERED: PREDNISONE20 MG ORAL (02:43)
[2018-04-10] MEDS ORDERED: PEPCID AC20 M2 PO (02:43)
[2018-04-10 04:45] VITALS: BP 128/66
[2018-04-10 04:48] VITALS: BP 128/68
--- NOTE | 2018-04-11 03:21 | Emergency Room Report ---
History of Present Illness General Chief Complaint: Skin Rash/Abscess Source: Patient Present Illness HPI Patient presents with complaints of multiple areas of insect bite She had a picture of an insect which was thought to be possibly mosquito Patient has increased discomfort with changing to multiple areas most significant being the lateral legs specificly the left ankle also both upper extremities denies any fevers or chills denies any chest pain or shortness of breath She noticed the insect bites morning , Allergies: Coded Allergies: NO KNOWN ALLERGIES (Unverified Allergy, Unknown, 08/22/16) Patient History Past Medical History: see triage record Pertinent Family History: none Reviewed Nursing Documentation: PMH: Agreed; PSxH: Agreed Nursing Documentation-PMH Hx Cardiac Problems: No - Ovarinan cyst, uterine fibroid Hx Hypertension: No Hx Pacemaker: No Hx Asthma: No Hx COPD: No Hx Diabetes: No Hx Cancer: No Hx Gastrointestinal Problems: Yes - Gastritis Hx Dialysis: No Hx Neurological Problems: Yes - Meningitis Hx Cerebrovascular Accident: Yes - 2013 Hx Seizures: No Review of Systems All Other Systems: negative except mentioned in HPI Physical Exam Vital Signs Date Time Temp Pulse Resp B/P (MAP) Pulse Ox O2 Delivery O2 Flow Rate FiO2 04/10/18 02:04 98.2 69 18 131/68 97 Room Air 98.2 Sp02 EP Interpretation: reviewed, normal General Appearance: well appearing, no apparent distress Head: normocephalic, atraumatic Eyes: bilateral eye PERRL, bilateral eye EOMI ENT: hearing grossly normal, normal pharynx, TMs + canals normal, uvula midline Neck: full range of motion, supple, no meningismus, no bony tend Respiratory: lungs clear, normal breath sounds, no rhonchi, no respiratory distress, no retraction, no accessory muscle use Cardiovascular #1: normal peripheral pulses, regular rate, rhythm, no edema, no gallop, no JVD, no murmur Gastrointestinal: normal bowel sounds, non tender, soft, no mass, no organomegaly, non-distended, no guarding, no hernia, no pulsatile mass, no rebound Genitourinary: no CVA tenderness Musculoskeletal: normal inspection Neurologic: oriented x3, responsive, auto club travel counselor III-XII nml as tested, motor strength/ tone normal, sensory intact Psychiatric: mood/affect normal Skin: other - Several areas of erythematous lesions mildly raised, with a central area of likely insect bite, no obvious fluctuance, there is some increased swelling to the lateral ankle however on the left side Lymphatic: normal inspection, no adenopathy Medical Decision Making Diagnostic Impression: Primary Impression: Rash and other nonspecific skin eruption Additional Impression: insect bite ER Course Given the findings and presentation patient is treated symptomatically She will also be placed on antibiotics given several of the areas with increased redness And requires close outpatient follow-up Last Vital Signs Date Time Temp Pulse Resp B/P (MAP) Pulse Ox O2 Delivery O2 Flow Rate FiO2 04/10/18 04:48 98.2 16 128/68 97 Room Air 04/10/18 04:45 69 Status: improved Disposition: HOME, SELF-CARE Condition: Improved Scripts Cephalexin* (KEFLEX*) 500 Mg Capsule 500 MG ORAL EVERY 8 HOURS, #21 CAP Prov: Neris Glasgow DO 04/10/18 Famotidine (PEPCID AC) 20 Mg Tablet 20 MG PO DAILY for 10 Days, TAB Prov: Neris Glasgow DO 04/10/18 Diphenhydramine Hcl* (BENADRYL*) 25 Mg Capsule 25 MG ORAL Q6H PRN for Itching, #20 CAP Prov: Neris Glasgow DO 04/10/18 Prednisone* (PREDNISONE*) 20 Mg Tablet 20 MG ORAL BID, #12 TAB Prov: Neris Glasgow DO 04/10/18 Referrals: NON PHYSICIAN (PCP) Patient Instructions: Rash, Insect Bite, [id number] Additional Instructions: Patient is provided with the discharge instructions notified to follow up with primary doctor in the next 2-3 days otherwise return to the er with any worsening symptoms. Please note that this report is being documented using Pulsar technology. This can lead to erroneous entry secondary to incorrect interpretation by the dictating instrument. Neris Glasgow DO Apr 11, 2018 03:21
== END 2018-04-10 02:50 | disposition home or self-care (01) ==
LOC: EMR 02:00
DX: R21 Rash and other nonspecific skin eruption (principal); S90.562A Insect bite (nonvenomous), left ankle, initial encounter; S40.862A Insect bite (nonvenomous) of left upper arm, initial encounter; S40.861A Insect bite (nonvenomous) of right upper arm, initial encounter; W57.XXXA Bitten or stung by nonvenomous insect and other nonvenomous arthropods, initial encounter; Y92.9 Unspecified place or not applicable; Z86.73 Personal history of transient ischemic attack (TIA), and cerebral infarction without residual deficits
CPT/HCPCS: 99284; J7512

== ENCOUNTER 2018-10-05 12:33 | Emergency (ER) | payer MEDICAID ==
[~2018-10-05] VITALS: Ht 160 cm; Wt 63.5 kg
[~2018-10-05 12:33] MED LIST changes: +PREDNISONE20 MG ORAL
[2018-10-05 12:45] VITALS: BP 118/68
--- NOTE | 2018-10-05 12:49 | NUR ---
ED Nurse Note: c/o posterior neck and right shoulder pain; reports no injury.
--- NOTE | 2018-10-05 13:20 | Emergency Room Report ---
History of Present Illness General Chief Complaint: Neck Pain Source: Patient Present Illness HPI 42-year-old female with history of viral meningitis in 1993 here complaining of acute onset of posterior and lateral neck pain on the right side radiating to her right shoulder as she was making a bowel movement without straining this morning at 9 AM. Patient reports she has been Suffering from flulike symptoms and minor headache in the past few days and low-grade fever. The patient does not have any headache or fever or any upper respiratory infection symptoms in the ER today. Patient is crying and in mild distress rating pain 10 out of 10 with radiation and has not taken any medication for pain. Patient denies any injury or trauma. Denies chest pain, shortness of breath, palpitation, abdominal pain. Denies tingling and numbness. Patient is concerned that she is having meningitis again. Denies contact with meningitis. 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 Complains of tension in her neck however no stiffness. denies sensory deficits, denies photophobia, nausea and vomiting Allergies: Coded Allergies: NO KNOWN ALLERGIES (Unverified Allergy, Unknown, 08/22/16) Patient History Past Medical History: see triage record Past Surgical History: none Pertinent Family History: none Now: No Immunizations: UTD Reviewed Nursing Documentation: PMH: Agreed; PSxH: Agreed Nursing Documentation-PMH Past Medical History: No History, Except For Hx Cardiac Problems: No - Ovarinan cyst, uterine fibroid Hx Hypertension: No Hx Pacemaker: No Hx Asthma: No Hx COPD: No Hx Diabetes: No Hx Cancer: No Hx Gastrointestinal Problems: Yes - Gastritis Hx Dialysis: No Hx Neurological Problems: Yes - Meningitis Hx Cerebrovascular Accident: Yes - 2014 Hx Seizures: No Review of Systems All Other Systems: negative except mentioned in HPI Physical Exam Vital Signs Date Time Temp Pulse Resp B/P (MAP) Pulse Ox O2 Delivery O2 Flow Rate FiO2 10/05/18 12:45 98.2 70 16 118/68 98 Room Air Sp02 EP Interpretation: reviewed, normal General Appearance: normal inspection, alert, GCS 15, non-toxic, mild distress Head: normocephalic, atraumatic Eyes: bilateral eye normal inspection, bilateral eye PERRL ENT: normal ENT inspection, normal pharynx Neck: supple, no meningismus, no bony tend, tender lateral - right posterior and lateral tenderness Respiratory: normal inspection, lungs clear, no rhonchi, no retraction, no wheezing Cardiovascular #1: normal inspection, no edema, no gallop, no murmur Cardiovascular #2: 2+ carotid (R), 2+ carotid (L) Gastrointestinal: normal inspection, soft Rectal: deferred Genitourinary: deferred Musculoskeletal: back normal, tender - posterior lateral neck, right shoulder has full range of motion, Fuentes and empty can test as well as drop arm test all negative Neurologic: normal inspection, alert, oriented x3, responsive, normal gait, no Babinski Psychiatric: normal inspection, judgement/insight normal, memory normal Skin: normal inspection, warm/dry, well hydrated Lymphatic: normal inspection, no adenopathy Medical Decision Making PA Attestation all Diagnosis treatment were reviewed with my supervising physician Dr. Felder Diagnostic Impression: Primary Impression: Muscle spasm Additional Impression: Neck strain ER Course 42-year-old female with history of viral meningitis in 1993 here complaining of acute onset of posterior and lateral neck pain on the right side radiating to her right shoulder as she was making a bowel movement without straining this morning at 9 AM. Patient reports she has been Suffering from flulike symptoms and minor headache in the past few days and low-grade fever. The patient does not have any headache or fever or any upper respiratory infection symptoms in the ER today. Patient is crying and in mild distress rating pain 10 out of 10 with radiation and has not taken any medication for pain. Patient denies any injury or trauma. Denies chest pain, shortness of breath, palpitation, abdominal pain. Denies tingling and numbness. Patient is concerned that she is having meningitis again. Denies contact with meningitis. 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 Complains of tension in her neck however no stiffness. denies sensory deficits, denies photophobia, nausea and vomiting Ddx considered but are not limited to: so spasm, bursitis,tendoinitis, meningitis Vital signs: are WNL, pt. is afebrile H&PE are most consistent with muscle spasm ORDERS: head CT no contrast, urine preg, tylenol 500mg ED INTERVENTIONS: tylenol 500mg DISCHARGE: At this time pt. is stable for d/c to home. Will provide printed patient care instructions, and any necessary prescriptions. Care plan and follow up instructions have been discussed with the patient prior to discharge. CT/MRI/US Diagnostic Results CT/MRI/US Diagnostic Results : Imaging Test Ordered: head CT no contrast Impression TECHNIQUE: Axial computed tomography images of the head/brain without intravenous contrast. CTDI is 70.68 mGy and DLP is 1326 mGy-cm. One or more of the following dose reduction techniques were used: automated exposure control, adjustment of the mA and/or kV according to patient size, use of iterative reconstruction technique. COMPARISON: No relevant prior studies available. FINDINGS: Brain: Unremarkable. No evidence of acute intracranial hemorrhage. No significant white matter disease. No edema. No mass effect or midline shift. Ventricles: Unremarkable. No ventriculomegaly. Bones/joints: Unremarkable. No depressed skull fracture. Soft tissues: Unremarkable. Sinuses: Unremarkable as visualized. No acute sinusitis. Mastoid air cells: Unremarkable as visualized. No mastoid effusion. IMPRESSION: Unremarkable noncontrast CT of the head/brain. Last Vital Signs Date Time Temp Pulse Resp B/P (MAP) Pulse Ox O2 Delivery O2 Flow Rate FiO2 10/05/18 12:45 98.2 70 16 118/68 98 Room Air Disposition: HOME, SELF-CARE Condition: Stable Scripts Naproxen* (NAPROXEN*) 500 Mg Tablet 500 MG ORAL TWICE A DAY, #30 TAB Prov: Kendall Alarcon 10/05/18 Methocarbamol* (ROBAXIN*) 500 Mg Tablet 500 MG PO BID, #10 TAB 0 Refills Prov: Kendall Alarcon 10/05/18 Referrals: NON PHYSICIAN (PCP) Patient Instructions: Muscle Cramps and Spasms, [id number] Additional Instructions: take medication as directed, avoid using strenuous physical activity with affected side, follow with primary care provider Kendall Alarcon Oct 05, 2018 13:20
[2018-10-05] MEDS ORDERED: NAPROXEN500 M2 ORAL (15:45)
[2018-10-05] MEDS ORDERED: ROBAXIN500 MG PO (15:45)
--- NOTE | 2018-10-05 15:53 | Diagnostic Imaging Report ---
EXAM: CT Head Without Intravenous Contrast CLINICAL HISTORY: PAIN TECHNIQUE: Axial computed tomography images of the head/brain without intravenous contrast. CTDI is 70.68 mGy and DLP is 1326 mGy-cm. One or more of the following dose reduction techniques were used: automated exposure control, adjustment of the mA and/or kV according to patient size, use of iterative reconstruction technique. COMPARISON: No relevant prior studies available. FINDINGS: Brain: Unremarkable. No evidence of acute intracranial hemorrhage. No significant white matter disease. No edema. No mass effect or midline shift. Ventricles: Unremarkable. No ventriculomegaly. Bones/joints: Unremarkable. No depressed skull fracture. Soft tissues: Unremarkable. Sinuses: Unremarkable as visualized. No acute sinusitis. Mastoid air cells: Unremarkable as visualized. No mastoid effusion. IMPRESSION: Unremarkable noncontrast CT of the head/brain.
[2018-10-05 15:55] VITALS: BP 120/72
--- NOTE | 2018-10-05 15:56 | NUR ---
ED Nurse Note: Patient is being discharged from medical care. Awake, alert and oriented x4. After care instructions, were given. Patient verbalized understanding of After care instructions. All medical devices such as ID band were removed. Patient ambulated out with all personal belongings with steady gait.
[2018-10-05] MEDS ORDERED: Acetaminophen 500mg (ES) tab ORAL ONE (16:00)
== END 2018-10-05 15:56 | disposition home or self-care (01) ==
LOC: EMR 13:07
DX: S16.1XXA Strain of muscle, fascia and tendon at neck level, initial encounter (principal); M62.838 Other muscle spasm; M25.511 Pain in right shoulder; Z86.73 Personal history of transient ischemic attack (TIA), and cerebral infarction without residual deficits
CPT/HCPCS: 70450; 81025; 99284

== ENCOUNTER 2018-12-20 20:22 | Emergency (ER) | payer MEDICAID ==
[~2018-12-20] VITALS: Ht 160 cm; Wt 64.9 kg
[~2018-12-20 20:22] MED LIST changes: +ROBAXIN500 MG PO
[2018-12-20 21:00] VITALS: BP 124/82
--- NOTE | 2018-12-20 21:00 | NUR ---
ER Nurse Note: Pt came from home c/o vaginal bleed; pt stated she found scant amount of blood after defecating. No blood seen in urine sample. Pt stated her last menstural cycle date was November 29- December 05. Pt a&ox4, VSS, no signs of distress. [facility]
[2018-12-20] MEDS ORDERED: Ketorolac 60mg Inj IM ONE (21:15)
[2018-12-20 21:28] LABS: APPEARANCE,URINE SLIGHTLY CLOUDY; BILIRUBIN, URINE NEGATIVE (NEGATIVE); COLOR,URINE PALE YELLOW; GLUCOSE, URINE (UA) NEGATIVE (NEGATIVE); KETONES,URINE NEGATIVE (NEGATIVE); LEUKOCYTE ESTERASE ,URINE NEGATIVE (NEGATIVE); NITRITE,URINE NEGATIVE (NEGATIVE); PH,URINE 5 (4.5-8.0); PROTEIN,URINE NEGATIVE (NEGATIVE); UROBILINOGEN,URINE NORMAL MG/DL (0.0-1.0)
[2018-12-20] MEDS ORDERED: IBUPROFEN600 MG ORAL (22:00)
--- NOTE | 2018-12-20 22:01 | Emergency Room Report ---
History of Present Illness General Chief Complaint: Vaginal Source: Patient Present Illness HPI Is a 42-year-old female with history of fibroids. She presents with chief complaint of vaginal bleeding and cramping. Her bleeding is midcycle. Pain is sharp and crampy. No nausea no vomiting. No fever chills. Pain is 8 out of 10. Denies any other complaint. Allergies: Coded Allergies: NO KNOWN ALLERGIES (Unverified Allergy, Unknown, 08/22/16) Patient History Past Medical History: see triage record, old chart reviewed Past Surgical History: other Pertinent Family History: none Social History: Denies: smoking Last Menstrual Period: november Now: No - unsure : 9 Para: 2 Immunizations: other Reviewed Nursing Documentation: PMH: Agreed; PSxH: Agreed Nursing Documentation-PMH Hx Cardiac Problems: No - Ovarinan cyst, uterine fibroid Hx Hypertension: No Hx Pacemaker: No Hx Asthma: No Hx COPD: No Hx Diabetes: No Hx Cancer: No Hx Gastrointestinal Problems: Yes - Gastritis Hx Dialysis: No Hx Neurological Problems: Yes - Meningitis Hx Cerebrovascular Accident: Yes - 2013 Hx Seizures: No Review of Systems Eye: Denies: eye pain, blurred vision ENT: Denies: ear pain, nose congestion, throat swelling Respiratory: Denies: cough, shortness of breath Cardiovascular: Denies: chest pain, palpitations Gastrointestinal: Denies: abdominal pain, diarrhea, nausea, vomiting Genitourinary: Reports: vag bleed/dc Musculoskeletal: Denies: back pain, joint pain Skin: Denies: rash Neurological: Denies: headache, numbness Endocrine: Denies: increased thirst, increased urine Hematologic/Lymphatic: Denies: easy bruising All Other Systems: negative except mentioned in HPI Physical Exam Vital Signs Date Time Temp Pulse Resp B/P (MAP) Pulse Ox O2 Delivery O2 Flow Rate FiO2 12/20/18 20:43 98.2 69 16 124/82 98 Room Air vitals normal Sp02 EP Interpretation: reviewed, normal General Appearance: well appearing, no apparent distress, alert Head: normocephalic, atraumatic Eyes: bilateral eye PERRL, bilateral eye EOMI ENT: hearing grossly normal, normal pharynx Neck: full range of motion, supple, no meningismus Respiratory: chest non-tender, lungs clear, normal breath sounds Cardiovascular #1: regular rate, rhythm, no murmur Gastrointestinal: normal bowel sounds, non tender, no mass, no organomegaly, no bruit, non-distended Musculoskeletal: back normal, gait/station normal, normal range of motion Psychiatric: mood/affect normal Skin: warm/dry Medical Decision Making Diagnostic Impression: Primary Impression: Dysfunctional uterine bleeding ER Course Patient with vaginal bleeding. No evidence of or ectopic. No evidence of infection. Discharged home. Last Vital Signs Date Time Temp Pulse Resp B/P (MAP) Pulse Ox O2 Delivery O2 Flow Rate FiO2 12/20/18 21:00 98.2 76 16 124/82 98 Room Air Status: improved Disposition: HOME, SELF-CARE Condition: Stable Scripts Ibuprofen* (MOTRIN*) 600 Mg Tablet 600 MG ORAL THREE TIMES A DAY, #30 TAB 0 Refills Prov: Lars Palacios MD 12/20/18 Additional Instructions: Follow-up with your doctor in 7 days. Return if worse. Lars Palacios MD Dec 20, 2018 22:01
--- NOTE | 2018-12-20 22:14 | NUR ---
ER Nurse Note: Pt seen, treated, medically cleared for discharge by ERMD. Discharge instructions and prescriptions given with repeat verbalizaion by pt. Instructed pt to follow up with primary care phyiscian within one week. Pt a&ox4, VSS, no signs of distress. ID band removed. Left with all belongings, ambulates with steady gait; left with own transportation.
[2018-12-20 22:15] VITALS: BP 124/82
== END 2018-12-20 22:10 | disposition home or self-care (01) ==
LOC: EMR 21:06
DX: N93.8 Other specified abnormal uterine and vaginal bleeding (principal); Z86.61 Personal history of infections of the central nervous system; Z87.19 Personal history of other diseases of the digestive system
CPT/HCPCS: 81003; 81025; 96372; 99283

== ENCOUNTER 2019-05-18 10:57 | Emergency (ER) | payer MEDICAID ==
[~2019-05-18] VITALS: Ht 160 cm; Wt 67.1 kg
[2019-05-18] MEDS ORDERED: NKM (11:09)
[2019-05-18 11:16] VITALS: BP 129/70
--- NOTE | 2019-05-18 11:16 | NUR ---
ED Nurse Note: Pt came in due to left flank pain that radiates to her left groin x 10 days. Pt reports ocassional blood on her stool dark red. AAO x4, ambulatory with unlabored breathing.
[2019-05-18] MEDS ORDERED: Ketorolac 60mg Inj IM ONE (11:45)
[2019-05-18 12:22] LABS: APPEARANCE,URINE CLEAR; BILIRUBIN, URINE NEGATIVE (NEGATIVE); COLOR,URINE PALE YELLOW; GLUCOSE, URINE (UA) NEGATIVE (NEGATIVE); KETONES,URINE NEGATIVE (NEGATIVE); LEUKOCYTE ESTERASE ,URINE NEGATIVE (NEGATIVE); NITRITE,URINE NEGATIVE (NEGATIVE); PH,URINE 7 (4.5-8.0); PROTEIN,URINE NEGATIVE (NEGATIVE); UROBILINOGEN,URINE NORMAL MG/DL (0.0-1.0)
[2019-05-18 12:23] LABS: BASOPHILS % (AUTO) 2.2 % (0.0-2.0); EOSINOPHILS % (AUTO) 3.7 % (0.0-3.0); HEMATOCRIT 37.2 % (37.0-47.0); HEMOGLOBIN 11.9 G/DL (12.0-16.0); LYMPHOCYTES % (AUTO) 31.5 % (20.0-45.0); MEAN CORPUSCULAR VOLUME 91 FL (80-99); MONOCYTES % (AUTO) 7.9 % (1.0-10.0); NEUTROPHILS % (AUTO) 54.7 % (45.0-75.0); PLATELET COUNT 326 K/UL (150-450); RED BLOOD COUNT 4.07 M/UL (4.20-5.40); RED CELL DISTRIBUTION WIDTH 13.2 % (11.6-14.8); WHITE BLOOD COUNT 5.5 K/UL (4.8-10.8)
[2019-05-18 12:26] LABS: ANION GAP 8 mmol/L (5-15); BLOOD UREA NITROGEN 7 mg/dL (7-18); CALCIUM 9.1 MG/DL (8.5-10.1); CARBON DIOXIDE 27 MMOL/L (21-32); CHLORIDE 106 MMOL/L (98-107); CREATININE 0.8 MG/DL (0.55-1.30); SODIUM 141 MMOL/L (136-145)
[2019-05-18 12:31] LABS: ALANINE AMINOTRANSFERASE 13 U/L (12-78); ALBUMIN 3.8 G/DL (3.4-5.0); ALKALINE PHOSPHATASE 64 U/L (46-116); ASPARTATE AMINO TRANSFERASE 12 U/L (15-37); BILIRUBIN,TOTAL 0.5 MG/DL (0.2-1.0)
--- NOTE | 2019-05-18 12:44 | Emergency Room Report ---
History of Present Illness General Chief Complaint: Lower Back Pain or Injury Source: Patient Present Illness HPI Patient presents with several different complaints initially complaining that she was having Lower abdominal pain cramping soon after that she had Her menstrual cycle and felt that this was likely related to that she also had some bleeding that she felt was possibly her menstrual cycle however that has subsided and she feels that The blood is in her stool she has some increased discomfort in the left inguinal region as well Denies any vomiting denies any chest pain denies any dysuria frequency Allergies: Coded Allergies: NO KNOWN ALLERGIES (Unverified Allergy, Unknown, 08/22/16) Patient History Past Medical History: see triage record Reviewed Nursing Documentation: PMH: Agreed; PSxH: Agreed Nursing Documentation-PMH Hx Cardiac Problems: No - Ovarinan cyst, uterine fibroid Hx Hypertension: No Hx Pacemaker: No Hx Asthma: No Hx COPD: No Hx Diabetes: No Hx Cancer: No Hx Gastrointestinal Problems: Yes - Gastritis Hx Dialysis: No Hx Neurological Problems: Yes - Meningitis Hx Cerebrovascular Accident: Yes - 2013 Hx Seizures: No Review of Systems All Other Systems: negative except mentioned in HPI Physical Exam Vital Signs Date Time Temp Pulse Resp B/P (MAP) Pulse Ox O2 Delivery O2 Flow Rate FiO2 05/18/19 11:06 98.2 66 19 135/76 (95) 99 Room Air Sp02 EP Interpretation: reviewed, normal General Appearance: well appearing, no apparent distress Head: normocephalic, atraumatic Eyes: bilateral eye PERRL, bilateral eye EOMI ENT: hearing grossly normal, normal pharynx, TMs + canals normal, uvula midline Neck: full range of motion, supple, no meningismus, no bony tend Respiratory: lungs clear, normal breath sounds, no rhonchi, no respiratory distress, no retraction, no accessory muscle use Cardiovascular #1: normal peripheral pulses, regular rate, rhythm, no edema, no gallop, no JVD, no murmur Gastrointestinal: normal bowel sounds, non tender, soft, no mass, no organomegaly, non-distended, no guarding, no hernia, no pulsatile mass, no rebound, other - Subjectively points to the left inguinal region however no obvious herniations or palpable Genitourinary: no CVA tenderness Musculoskeletal: normal inspection Neurologic: oriented x3, responsive, manager staffing III-XII nml as tested, motor strength/ tone normal, sensory intact Psychiatric: mood/affect normal Skin: no rash Lymphatic: normal inspection, no adenopathy Medical Decision Making Diagnostic Impression: Primary Impression: Uterine fibroid ER Course With the patient's history and examination, multiple differentials considered, including but not limited to , ectopic , ovarian torsion, gastritis, cholecystitis, pancreatitis, appendicitis Differential such as gastrointestinal bleeding also entertained Patient's blood count however is stable from previous examinations abdomen continues to be soft imaging study again reveals Findings consistent with uterine fibroid Patient's urine test also is clear without any signs of infection patient is stable for close follow-up at this time patient reports that she has an appointment on the to address her uterine fibroids with a specialist Labs Test 05/18/19 11:45 White Blood Count 5.5 K/UL (4.8-10.8) Red Blood Count 4.07 M/UL (4.20-5.40) Hemoglobin 11.9 G/DL (12.0-16.0) Hematocrit 37.2 % (37.0-47.0) Mean Corpuscular Volume 91 FL (80-99) Mean Corpuscular Hemoglobin 29.3 PG (27.0-31.0) Mean Corpuscular Hemoglobin Concent 32.1 G/DL (32.0-36.0) Red Cell Distribution Width 13.2 % (11.6-14.8) Platelet Count 326 K/UL (150-450) Mean Platelet Volume 5.7 FL (6.5-10.1) Neutrophils (%) (Auto) 54.7 % (45.0-75.0) Lymphocytes (%) (Auto) 31.5 % (20.0-45.0) Monocytes (%) (Auto) 7.9 % (1.0-10.0) Eosinophils (%) (Auto) 3.7 % (0.0-3.0) Basophils (%) (Auto) 2.2 % (0.0-2.0) Urine Color Pale yellow Urine Appearance Clear Urine pH 7 (4.5-8.0) Urine Specific [place] 1.005 (1.005-1.035) Urine Protein Negative (NEGATIVE) Urine Glucose (UA) Negative (NEGATIVE) Urine Ketones Negative (NEGATIVE) Urine Blood Negative (NEGATIVE) Urine Nitrite Negative (NEGATIVE) Urine Bilirubin Negative (NEGATIVE) Urine Urobilinogen Normal MG/DL (0.0-1.0) Urine Leukocyte Esterase Negative (NEGATIVE) Urine HCG, Qualitative Negative (NEGATIVE) Sodium Level 141 MMOL/L (136-145) Potassium Level 4.0 MMOL/L (3.5-5.1) Chloride Level 106 MMOL/L (98-107) Carbon Dioxide Level 27 MMOL/L (21-32) Anion Gap 8 mmol/L (5-15) Blood Urea Nitrogen 7 mg/dL (7-18) Creatinine 0.8 MG/DL (0.55-1.30) Estimat Glomerular Filtration Rate > 60 mL/min (>60) Glucose Level 89 MG/DL (74-106) Calcium Level 9.1 MG/DL (8.5-10.1) Total Bilirubin 0.5 MG/DL (0.2-1.0) Aspartate Amino Transf (AST/SGOT) 12 U/L (15-37) Alanine Aminotransferase (ALT/SGPT) 13 U/L (12-78) Alkaline Phosphatase 64 U/L (46-116) Total Protein 7.6 G/DL (6.4-8.2) Albumin 3.8 G/DL (3.4-5.0) Globulin 3.8 g/dL Albumin/Globulin Ratio 1.0 (1.0-2.7) Lipase 182 U/L (73-393) CT/MRI/US Diagnostic Results CT/MRI/US Diagnostic Results : Impression CT abdomen pelvis IMPRESSION: 1. Bulky lobulated uterus, likely related to fibroid disease. Uterus measures 11.4 x 7.5 x 6.3 cm. 2. No acute findings in the abdomen or pelvis. No bowel obstruction or bowel wall thickening. Gallbladder and appendix appear unremarkable. No obstructive uropathy. Last Vital Signs Date Time Temp Pulse Resp B/P (MAP) Pulse Ox O2 Delivery O2 Flow Rate FiO2 05/18/19 11:06 98.2 66 19 135/76 (95) 99 Room Air Status: improved Disposition: HOME, SELF-CARE Condition: Improved Scripts Ibuprofen* (MOTRIN*) 600 Mg Tablet 600 MG ORAL Q8H PRN for For Pain, #20 TAB 0 Refills Prov: Neris Glasgow DO 05/18/19 Referrals: NOT CHOSEN IPA/MD,REFERRING (PCP) Additional Instructions: Patient is provided with the discharge instructions notified to follow up with primary doctor in the next 2-3 days otherwise return to the er with any worsening symptoms. Please note that this report is being documented using DRAGON technology. This can lead to erroneous entry secondary to incorrect interpretation by the dictating instrument. Neris Glasgow DO May 18, 2019 12:44
--- NOTE | 2019-05-18 13:22 | Diagnostic Imaging Report ---
EXAM: CT Abdomen and Pelvis Without Intravenous Contrast CLINICAL HISTORY: ABD PAIN TECHNIQUE: Axial computed tomography images of the abdomen and pelvis without intravenous contrast. Sagittal and coronal reformatted images were created and reviewed. CTDI is 14.79 mGy and DLP is 749 mGy-cm. One or more of the following dose reduction techniques were used: automated exposure control, adjustment of the mA and/or kV according to patient size, use of iterative reconstruction technique. COMPARISON: No relevant prior studies available. FINDINGS: Lung bases: Unremarkable. No consolidation. No effusions. ABDOMEN: Liver: Unremarkable. Gallbladder and bile ducts: Unremarkable. No calcified stones. No ductal dilation. Pancreas: Unremarkable. No ductal dilation. Spleen: Unremarkable. No splenomegaly. Adrenals: Unremarkable. No mass. Kidneys and ureters: Unremarkable. No obstructing stones. No hydronephrosis. Stomach and bowel: Unremarkable. No obstruction. No mucosal thickening. PELVIS: Appendix: No findings to suggest acute appendicitis. Bladder: Unremarkable. No stones. Reproductive: Bulky lobulated uterus, likely related to fibroid disease. Uterus measures 11.4 x 7.5 x 6.3 cm. ABDOMEN and PELVIS: Intraperitoneal space: Unremarkable. No free air. No significant fluid collection. Bones/joints: No acute fracture. No dislocation. Soft tissues: Unremarkable. Vasculature: Unremarkable. No abdominal aortic aneurysm. Lymph nodes: Unremarkable. No enlarged lymph nodes. IMPRESSION: 1. Bulky lobulated uterus, likely related to fibroid disease. Uterus measures 11.4 x 7.5 x 6.3 cm. 2. No acute findings in the abdomen or pelvis. No bowel obstruction or bowel wall thickening. Gallbladder and appendix appear unremarkable. No obstructive uropathy.
[2019-05-18] MEDS ORDERED: IBUPROFEN600 MG ORAL (13:38)
[2019-05-18 13:47] VITALS: BP 135/72
--- NOTE | 2019-05-18 13:47 | NUR ---
ER DISCHARGE NOTE: Patient is cleared to be discharged per ERMD, pt is aox4, on room air, with stable vital signs. pt was given dc and prescription instructions, pt was able to verbalize understanding, pt id band removed without complications. pt is able to ambulate with steady gait. pt took all belongings.
== END 2019-05-18 13:47 | disposition home or self-care (01) ==
LOC: EMR 11:55
DX: D25.9 Leiomyoma of uterus, unspecified (principal); Z86.73 Personal history of transient ischemic attack (TIA), and cerebral infarction without residual deficits; Z86.61 Personal history of infections of the central nervous system
CPT/HCPCS: 36415; 74176; 80053; 81003; 81025; 83690; 85025; 96372; 99284

== ENCOUNTER 2019-08-16 13:16 | Emergency (ER) | payer MEDICAID ==
[~2019-08-16] VITALS: Ht 160 cm; Wt 68.0 kg
--- NOTE | 2019-08-16 14:04 | NUR ---
ED Nurse Note: Pt came in from home due to blood in urine x 3 days, but "no more" noted today. Pt had an uterine biopsy procedure done on 07/28/19 and was instructed that she will bleed. She also has been weak and having yellowish discharge with foul odor x 3 days. AOOx4, vital signs stable. Will cont to monitor.
[2019-08-16 14:16] LABS: APPEARANCE,URINE CLEAR; BILIRUBIN, URINE NEGATIVE (NEGATIVE); COLOR,URINE PALE YELLOW; GLUCOSE, URINE (UA) NEGATIVE (NEGATIVE); KETONES,URINE NEGATIVE (NEGATIVE); LEUKOCYTE ESTERASE ,URINE NEGATIVE (NEGATIVE); NITRITE,URINE NEGATIVE (NEGATIVE); PH,URINE 7 (4.5-8.0); PROTEIN,URINE NEGATIVE (NEGATIVE); UROBILINOGEN,URINE NORMAL MG/DL (0.0-1.0)
--- NOTE | 2019-08-16 14:45 | Emergency Room Report ---
History of Present Illness General Chief Complaint: Female Urogenital Problems Source: Patient, Medical Record Present Illness HPI 43-year-old female presents to the emergency department complaining of intermittent vaginal bleeding x1 week in addition to foul-smelling vaginal discharge. Patient reports she had uterine biopsy performed approximately 3 weeks ago and did not have any complications immediately after. Patient denies abdominal pain, fevers, chills she denies suspicion of STI she reports she has not had intercourse since biopsy. Patient denies recent antibiotic use. Patient states that her bi manager did not prescribe her medications after the procedure but told her to watch for certain symptoms. She denies back pain she reports bleeding is scant she has had three dark blood clots, and states that it is not at the correct time when she would be having her cycle. Patient does have a history of uterine fibroids for which the biopsy was performed. Denies dysuria, urinary frequency, urgency or hematuria. Allergies: Coded Allergies: NO KNOWN ALLERGIES (Unverified Allergy, Unknown, 08/22/16) Patient History Past Medical History: see triage record Past Surgical History: none Pertinent Family History: none Last Menstrual Period: Unknown Now: No : 2 Para: 2 Immunizations: UTD Reviewed Nursing Documentation: PMH: Agreed; PSxH: Agreed Nursing Documentation-PMH Hx Cardiac Problems: No - Ovarinan cyst, uterine fibroid Hx Hypertension: No Hx Pacemaker: No Hx Asthma: No Hx COPD: No Hx Diabetes: No Hx Cancer: No Hx Gastrointestinal Problems: Yes - Gastritis Hx Dialysis: No Hx Neurological Problems: Yes - Meningitis Hx Cerebrovascular Accident: Yes - 2013 Hx Seizures: No Review of Systems All Other Systems: negative except mentioned in HPI Physical Exam Vital Signs Date Time Temp Pulse Resp B/P (MAP) Pulse Ox O2 Delivery O2 Flow Rate FiO2 08/16/19 13:35 98.8 73 15 111/73 (86) 96 Room Air Sp02 EP Interpretation: reviewed, normal General Appearance: no apparent distress, alert, GCS 15, non-toxic Head: normocephalic, atraumatic Eyes: bilateral eye normal inspection, bilateral eye PERRL ENT: hearing grossly normal, normal voice Neck: full range of motion Respiratory: lungs clear, normal breath sounds, speaking full sentences Cardiovascular #1: regular rate, rhythm Gastrointestinal: normal bowel sounds, non tender, soft, non-distended, no guarding Genitourinary: normal inspection, no CVA tenderness, adnexa normal, cervix normal, ext genitalia/vag normal, os closed, other - malodorus (strong) vaginal D/C noted in the vaginal vault. No CMT. Musculoskeletal: back normal, gait/station normal, normal range of motion, non- tender Neurologic: alert, oriented x3, responsive, motor strength/tone normal, sensory intact, speech normal, grossly normal Psychiatric: judgement/insight normal Lymphatic: no adenopathy Medical Decision Making PA Attestation Dr. Glasgow is my supervising Physician whom patient management has been discussed with. Diagnostic Impression: Primary Impression: Vaginal discharge ER Course 43-year-old female presents to the emergency department complaining of intermittent vaginal bleeding x1 week in addition to foul-smelling vaginal discharge. Patient reports she had uterine biopsy performed approximately 3 weeks ago and did not have any complications immediately after. Patient denies abdominal pain, fevers, chills she denies suspicion of STI she reports she has not had intercourse since biopsy. Patient denies recent antibiotic use. Patient states that her bi manager did not prescribe her medications after the procedure but told her to watch for certain symptoms. She denies back pain she reports bleeding is scant she has had three dark blood clots, and states that it is not at the correct time when she would be having her cycle. Patient does have a history of uterine fibroids for which the biopsy was performed. Denies dysuria, urinary frequency, urgency or hematuria. Ddx considered but are not limited to UTi , Pyelo, STI, Stone, Cystitis, vaginal laceration, vaginitis. Vital signs: are WNL, pt. is afebrile H& PE are most consistent with: Vaginitis ORDERS: - UA labs are attached : Unremarkable WNL - Urine Hcg: Negative - Wet Mount : few bacteria and WBC's, no trich, clue or yeast cells. ED INTERVENTIONS: -d/w pt. wet mount results, pt. wants to receive abx for BV based on clinical impression. DISCHARGE: At this time pt. is stable for d/c to home. Will provide printed patient care instructions, and any necessary prescriptions. Care plan and follow up instructions have been discussed with the patient prior to discharge. discussed with the patient prior to discharge. Labs Test 08/16/19 13:55 Urine Color Pale yellow Urine Appearance Clear Urine pH 7 (4.5-8.0) Urine Specific [place] 1.005 (1.005-1.035) Urine Protein Negative (NEGATIVE) Urine Glucose (UA) Negative (NEGATIVE) Urine Ketones Negative (NEGATIVE) Urine Blood Negative (NEGATIVE) Urine Nitrite Negative (NEGATIVE) Urine Bilirubin Negative (NEGATIVE) Urine Urobilinogen Normal MG/DL (0.0-1.0) Urine Leukocyte Esterase Negative (NEGATIVE) Urine HCG, Qualitative Negative (NEGATIVE) Last Vital Signs Date Time Temp Pulse Resp B/P (MAP) Pulse Ox O2 Delivery O2 Flow Rate FiO2 08/16/19 13:35 98.8 73 15 111/73 (86) 96 Room Air Status: improved Disposition: HOME, SELF-CARE Condition: Stable Scripts Metronidazole* (FLAGYL*) 500 Mg Tablet 500 MG ORAL BID for 7 Days, #14 TAB Prov: Анна Coe 08/16/19 Referrals: NON PHYSICIAN (PCP) Patient Instructions: Vaginitis Additional Instructions: Take medications as directed. Follow up with a DIESEL INSPECTOR within 3-5 days, even if your symptoms have resolved. Return sooner to ED if new symptoms occur, or current symptoms become worse. - Please note that this Emergency Department Report was dictated using Cinemacraftstring winding machine operator technology software, occasionally this can lead to erroneous entry secondary to interpretation by the dictation equipment. Анна Coe Aug 16, 2019 14:45
[2019-08-16 15:13] VITALS: BP 112/79
[2019-08-16] MEDS ORDERED: METRONIDAZOLE500 MG ORAL (15:24)
[2019-08-16 15:33] VITALS: BP 112/79
--- NOTE | 2019-08-16 15:33 | NUR ---
ER DISCHARGE NOTE: Patient is cleared to be discharged per ERMD, pt is aox4, on room air, with stable vital signs. pt was given dc and prescription instructions, pt was able to verbalize understanding, pt id band removed. pt is able to ambulate with steady gait. pt took all belongings.
== END 2019-08-16 15:33 | disposition home or self-care (01) ==
LOC: EMR 14:11
DX: N89.8 Other specified noninflammatory disorders of vagina (principal); N93.9 Abnormal uterine and vaginal bleeding, unspecified; Z86.73 Personal history of transient ischemic attack (TIA), and cerebral infarction without residual deficits
CPT/HCPCS: 81003; 81025; 87210; Z7502; 99283

== ENCOUNTER 2019-11-30 13:55 | Emergency (ER) | payer SELFPAY ==
[~2019-11-30] VITALS: Ht 160 cm; Wt 71.2 kg
[~2019-11-30 13:55] MED LIST changes: +ALBUTEROL SULF8.5 GM INH; +METRONIDAZOLE500 MG ORAL
[2019-11-30] MEDS ORDERED: Albuterol ud Inhalation HHN ONE (14:15)
--- NOTE | 2019-11-30 14:18 | Emergency Room Report ---
History of Present Illness General Chief Complaint: Flu Like Symptoms Source: Patient Present Illness HPI 43-year-old female presents to the emergency department complaining of persistent cough with increased mucus production x1 month. Patient reports she was previously seen here in the ER for URI symptoms she states that her symptoms never quite went away. Patient states she did follow-up with her primary care provider who encouraged her to continue use of her inhaler and some cough medication. Patient states that she continues to have symptoms. She states last night she had so much mucus that it concerned her so she came in for evaluation of infection. She denies smoking history. She reports history of asthma in the past. She denies fevers or chills, recent travel or ill contacts. She denies cardiac history or other significant past medical history. Denies sore throat, ear pain, high fevers, lethargy, neck pain/ stiffness, irritability, photophobia dehydration, N/V/D. Denies Cp, Palpitations , LOC, AMS, seizures, paresthesias, or changes in Hearing or vision, no Sudden severe MULLEN. Denies hx of smoking, asthma or COPD. Denies hx of GERD. Allergies: Coded Allergies: NO KNOWN ALLERGIES (Unverified Allergy, Unknown, 08/22/16) Patient History Past Medical History: see triage record Past Surgical History: none Pertinent Family History: none Last Menstrual Period: 2 weeks johnsno Now: No Reviewed Nursing Documentation: PMH: Agreed; PSxH: Agreed Nursing Documentation-PMH Hx Cardiac Problems: No - Ovarinan cyst, uterine fibroid Hx Hypertension: No Hx Pacemaker: No Hx Asthma: No Hx COPD: No Hx Diabetes: No Hx Cancer: No Hx Gastrointestinal Problems: Yes - Gastritis Hx Dialysis: No Hx Neurological Problems: Yes - Meningitis Hx Cerebrovascular Accident: Yes - 2014 Hx Seizures: No Review of Systems All Other Systems: negative except mentioned in HPI Physical Exam Vital Signs Date Time Temp Pulse Resp B/P (MAP) Pulse Ox O2 Delivery O2 Flow Rate FiO2 11/30/19 14:00 98.1 84 18 114/76 (89) 100 Room Air Sp02 EP Interpretation: reviewed, normal General Appearance: no apparent distress, alert, GCS 15, non-toxic Head: normocephalic, atraumatic Eyes: bilateral eye normal inspection, bilateral eye PERRL ENT: hearing grossly normal, normal voice Neck: full range of motion Respiratory: chest non-tender, lungs clear, normal breath sounds, no respiratory distress, no accessory muscle use, speaking full sentences, wheezing - scant expiratory wheeze in upper airway Cardiovascular #1: regular rate, rhythm, no edema, normal capillary refill Musculoskeletal: back normal, normal range of motion, gait/station normal, non- tender Neurologic: alert, motor strength/tone normal, oriented x3, sensory intact, responsive, speech normal Psychiatric: judgement/insight normal Skin: no rash, normal color Lymphatic: no adenopathy Medical Decision Making PA Attestation Dr. Felder is my supervising Physician whom patient management has been discussed with. Diagnostic Impression: Primary Impression: Chronic coughing ER Course 43-year-old female presents to the emergency department complaining of persistent cough with increased mucus production x1 month. Patient reports she was previously seen here in the ER for URI symptoms she states that her symptoms never quite went away. Patient states she did follow-up with her primary care provider who encouraged her to continue use of her inhaler and some cough medication. Patient states that she continues to have symptoms. She states last night she had so much mucus that it concerned her so she came in for evaluation of infection. She denies smoking history. She reports history of asthma in the past. She denies fevers or chills, recent travel or ill contacts. She denies cardiac history or other significant past medical history. Denies sore throat, ear pain, high fevers, lethargy, neck pain/ stiffness, irritability, photophobia dehydration, N/V/D. Denies Cp, Palpitations , LOC, AMS, seizures, paresthesias, or changes in Hearing or vision, no Sudden severe MULLEN. Denies hx of smoking, asthma or COPD. Denies hx of GERD. Ddx considered but are not limited to URI, pneumonia, PE, strep pharyngitis, meningitis. Vital signs: Pt. is afebrile, the remaining VS are WNL H&PE are most consistent with Bronchitis vs. chronic cough secondary to GERD. no meningeal signs, oropharynx is not involved, no evidence of bacterial infection at this time. Will do cxr due to duration of symptoms. ORDERS: -CXR: WNL ED INTERVENTIONS: Albuterol HHN --PT. EDUCATION: Discussed antibiotic resistance with inappropriate prescribing of antibiotics for viral illnesses. Discussed signs and symptoms to indicate viral illness versus bacterial illness. DISCHARGE: At this time pt. is stable for d/c to home. Will provide printed patient care instructions, and any necessary prescriptions. Care plan and follow up instructions have been discussed with the patient prior to discharge. Chest X-Ray Diagnostic Results Chest X-Ray Diagnostic Results : Chest X-Ray Ordered: Yes # of Views/Limited/Complete: 1 View Indication: Shortness of Breath EP Interpretation: Yes PA Xray: Interpretation reviewed, by supervising MD, and agrees with findings. Interpretation: no consolidation, no effusion, no pneumothorax, no acute cardiopulmonary disease Impression: No acute disease Last Vital Signs Date Time Temp Pulse Resp B/P (MAP) Pulse Ox O2 Delivery O2 Flow Rate FiO2 11/30/19 14:00 98.1 84 18 114/76 (89) 100 Room Air Status: improved Disposition: HOME, SELF-CARE Condition: Stable Scripts Albuterol Sulfate* (ALBUTEROL SULFATE MDI*) 8.5 Gm Hfa.aer.ad 2 PUFF INH Q3H, #1 INH 0 Refills Prov: Анна Coe 11/30/19 Guaifenesin/Dextromethorphan* (Guaifenesin Dm Syrup*) 5 Ml Syrup 5 ML ORAL Q6H PRN for FOR COUGH, #118 ML Prov: Анна Coe 11/30/19 Famotidine* (Pepcid 20mg tablet*) 20 Mg Tablet 20 MG ORAL TWICE A DAY for 15 Days, #30 TAB 0 Refills Prov: Анна Coe 11/30/19 Methylprednisolone (Methylprednisolone*) 4MG Dspk 4 MG ORAL DIRECTED for 6 Days, #21 EA 0 Refills Day 1: Two tablets before breakfast, one after lunch, one after dinner, and two at bedtime. If started late in the day, take all six tablets at once or divide into two or three doses, unless otherwise directed by prescriber. Day 2: One tablet before breakfast, one after lunch, one after dinner, and two at bedtime Day 3: One tablet before breakfast, one after lunch, one after dinner, and one at bedtime Day 4: One tablet before breakfast, one after lunch, and one at bedtime Day 5: One tablet before breakfast and one at bedtime Day 6: One tablet before breakfast Prov: Анна Coe 3/1/20 Referrals: NON PHYSICIAN (PCP) Patient Instructions: Cough, Adult, [id number] Additional Instructions: Take medications as directed. Follow up with a Primary Care Provider in 3-5 days, even if your symptoms have resolved. PULMONOLOGY EVALUATION Return sooner to ED if new symptoms occur, or current symptoms become worse. - Please note that this Emergency Department Report was dictated using [employer] manager technology software, occasionally this can lead to erroneous entry secondary to interpretation by the dictation equipment. Анна Coe Nov 30, 2019 14:18
--- NOTE | 2019-11-30 14:24 | NUR ---
ED Nurse Note: Pt walked into ED for chest pain while coughing 04/09. Pt also has been coughing up yellow phlegm for 1 month. Pt came here 1 month ago for upper resp infection, but hasn't recovered since. Pt also has lower back pain 04/09. Pt is alert and orientedx4, ambulatory.
[2019-11-30 14:25] VITALS: BP 119/70
[2019-11-30] MEDS ORDERED: FAMOTIDINE20 MG ORAL (15:16)
[2019-11-30] MEDS ORDERED: GUAIFENESIN DM118 M1 ORAL (15:16)
[2019-11-30] MEDS ORDERED: MEDROL DOSEPAK4 MG ORAL (15:16)
[2019-11-30] MEDS ORDERED: ALBUTEROL SULF8.5 GM INH (15:16)
--- NOTE | 2019-11-30 15:28 | NUR ---
ER DISCHARGE NOTE: Patient is cleared to be discharged per ERMD, pt is aox4, on room air, with stable vital signs. pt was given dc and prescription instructions, pt was able to verbalize understanding, pt id band removed. pt is able to ambulate with steady gait. pt took all belongings. Pt instructed to see boat canvas maker installer.
[2019-11-30 15:29] VITALS: BP 112/65
--- NOTE | 2019-12-01 11:08 | Diagnostic Imaging Report ---
Indication: Dyspnea Comparison: 10/21/2019 A single view chest radiograph was obtained. Findings: Cardiomediastinal appearance is within normal limits for age. The lungs are clear. Pulmonary vascularity is appropriate. The diaphragmatic contour is smooth and costophrenic angles are sharp. No pleural effusions are identified. The bones are unremarkable. Impression: No acute findings
== END 2019-11-30 15:30 ==
LOC: EMR 14:13
DX: R05 Cough (principal); Z86.73 Personal history of transient ischemic attack (TIA), and cerebral infarction without residual deficits
CPT/HCPCS: 71045; 99284

== ENCOUNTER 2020-02-09 16:28 | Emergency (ER) | payer SELFPAY ==
[~2020-02-09] VITALS: Ht 160 cm; Wt 63.5 kg
--- NOTE | 2020-02-09 16:25 | NUR ---
ED Nurse Note: PT walked in to ED for C/O cough x 1 week with clear sputum. pt was prescribed z pack from another hospital but does not feel better
[2020-02-09 16:26] VITALS: BP 117/86
[~2020-02-09 16:28] MED LIST changes: +FAMOTIDINE20 MG ORAL; +GUAIFENESIN DM118 M1 ORAL; +MEDROL DOSEPAK4 MG ORAL
--- NOTE | 2020-02-09 16:47 | NUR ---
ED Nurse Note: x ray taken at tent
--- NOTE | 2020-02-09 17:10 | Emergency Room Report ---
History of Present Illness General Chief Complaint: Upper Respiratory Illness Source: Patient Present Illness HPI 44-year-old female with no significant past medical history who smokes marijuana on daily basis here complaining of 1 week of cough and congestion. Denies shortness of breath, fever and chills, loss of taste and smell. Denies abdominal pain, nausea vomiting diarrhea. Reports that she went to a different hospital about a week ago and was given Z-Esdras however has not felt improvement. Patient oxygenation within normal limits and afebrile. Denies Allergies: Coded Allergies: NO KNOWN ALLERGIES (Unverified Allergy, Unknown, 08/22/16) COVID-19 Screening Contact w/high risk pt: No Recent Travel to affected area: No Experienced COVID-19 symptoms?: Yes COVID-19 symptoms experienced: Cough Patient History Past Medical History: see triage record Past Surgical History: none Pertinent Family History: none Social History: Reports: drug use - yessi Last Menstrual Period: na Now: No Immunizations: UTD Reviewed Nursing Documentation: PMH: Agreed; PSxH: Agreed Nursing Documentation-PMH Past Medical History: No History, Except For Hx Hypertension: No Hx Pacemaker: No Hx Asthma: No Hx COPD: No Hx Diabetes: No Hx Cancer: No Hx Gastrointestinal Problems: Yes - Gastritis Hx Dialysis: No Hx Neurological Problems: Yes - Meningitis Hx Cerebrovascular Accident: Yes - 2013 Hx Seizures: No Review of Systems All Other Systems: negative except mentioned in HPI Physical Exam Vital Signs Date Time Temp Pulse Resp B/P (MAP) Pulse Ox O2 Delivery O2 Flow Rate FiO2 02/09/20 16:22 98.2 99 18 117/86 (96) 98 Room Air Sp02 EP Interpretation: reviewed, normal General Appearance: no apparent distress, alert, GCS 15, non-toxic Head: normocephalic, atraumatic Eyes: bilateral eye normal inspection, bilateral eye PERRL ENT: hearing grossly normal, normal pharynx, no angioedema, normal voice Neck: full range of motion, supple, supple/symm/no masses Respiratory: lungs clear, no rhonchi, no wheezing Cardiovascular #1: regular rate, rhythm, no edema Gastrointestinal: soft, no bruit Rectal: deferred Genitourinary: no CVA tenderness Musculoskeletal: back normal, no calf tenderness Neurologic: alert, motor strength/tone normal, oriented x3, sensory intact, responsive, speech normal Psychiatric: judgement/insight normal, memory normal, mood/affect normal, no suicidal/homicidal ideation Skin: no rash Lymphatic: no adenopathy Medical Decision Making PA Attestation All diagnoses and treatment plans were reviewed and discussed with my supervising physician Dr. Mckeon Diagnostic Impression: Primary Impression: Upper respiratory infection ER Course 44-year-old female with no significant past medical history who smokes marijuana on daily basis here complaining of 1 week of cough and congestion. Denies shortness of breath, fever and chills, loss of taste and smell. Denies abdominal pain, nausea vomiting diarrhea. Reports that she went to a different hospital about a week ago and was given Z-Esdras however has not felt improvement. Patient oxygenation within normal limits and afebrile. Denies Ddx considered but are not limited to: bronchitis, PNA, URI viral, bacterial bronchitis, coronavirus Vital signs: are WNL, pt. is afebrile H&PE are most consistent with: Upper respiratory infection ORDERS: Chest x-ray, Augmentin, Phenergan, albuterol ED INTERVENTIONS: None required at this time. DISCHARGE: At this time pt. is stable for d/c to home. Will provide printed patient care instructions, and any necessary prescriptions. Care plan and follow up instructions have been discussed with the patient prior to discharge. Patient take medication as directed, follow-up primary doctor, increase oral hydration, if worsening symptoms return to the emergency room also avoid smoking marijuana Chest X-Ray Diagnostic Results Chest X-Ray Diagnostic Results : Chest X-Ray Ordered: Yes # of Views/Limited/Complete: 1 View Indication: Other EP Interpretation: Yes MARIO Xray: Interpretation reviewed, by supervising MD, and agrees with findings. Interpretation: no consolidation, no effusion, no pneumothorax Impression: No acute disease Electronically Signed by: Kendall Benson PA-C Last Vital Signs Date Time Temp Pulse Resp B/P (MAP) Pulse Ox O2 Delivery O2 Flow Rate FiO2 02/09/20 16:26 99 18 Room Air 02/09/20 16:26 98.2 117/86 98 Disposition: HOME, SELF-CARE Condition: Stable Scripts Albuterol Sulfate (VENTOLIN HFA) 18 Gm Hfa.aer.ad 2 PUFFS INH EVERY 6 HOURS, #18 GM 0 Refills Prov: Kendall Alarcon 02/09/20 Promethazine Hcl (PROMETHAZINE HCL*) 6.25 Mg/5 Ml Syrup 5 ML ORAL Q8H, #120 ML 0 Refills Prov: Kendall Alarcon 02/09/20 Amoxicillin/Potassium Clav 875-125* (AUGMENTIN 875-125 TABLET*) 1 Each Tablet 1 TAB ORAL TWICE A DAY for 7 Days, #14 TAB Prov: Kendall Alarcon 02/09/20 Referrals: NON PHYSICIAN (PCP) Patient Instructions: Upper Respiratory Infection, Adult Additional Instructions: Take medication as directed, increase oral hydration, if worsening symptoms return to the emergency room. Take medication as directed, follow-up with your primary doctor, you need to stay home for self quarantine due to Covid 19 precautions for 14 days Kendall Alarcon February 09, 2020 17:10
[2020-02-09] MEDS ORDERED: PROMETHAZI6.25 MG/1 ORAL (17:11)
[2020-02-09] MEDS ORDERED: AUGMENTIN 875-1 EAC1 ORAL (17:11)
[2020-02-09] MEDS ORDERED: VENTOLIN HFA18 GM INH (17:11)
[2020-02-09 17:17] VITALS: BP 120/84
--- NOTE | 2020-02-09 17:40 | Diagnostic Imaging Report ---
Indication: Cough, fever Technique: One view of the chest Comparison: 11/30/2019 Findings: Images somewhat underexposed. Lungs and pleural spaces are clear. Heart size is normal. No significant change Impression: No acute process
== END 2020-02-09 17:17 | disposition home or self-care (01) ==
LOC: EDBD 16:28 → EMR 16:50
DX: J06.9 Acute upper respiratory infection, unspecified (principal); F12.90 Cannabis use, unspecified, uncomplicated; Z86.61 Personal history of infections of the central nervous system; Z86.73 Personal history of transient ischemic attack (TIA), and cerebral infarction without residual deficits
CPT/HCPCS: 71045; 99283

== ENCOUNTER 2020-03-11 09:05 | Emergency (ER) | payer SELFPAY ==
[~2020-03-11] VITALS: Ht 160 cm; Wt 65.8 kg
[~2020-03-11 09:05] MED LIST changes: +AUGMENTIN 875-1 EAC1 ORAL; +PROMETHAZI6.25 MG/1 ORAL; +VENTOLIN HFA18 GM INH
[2020-03-11 09:08] VITALS: BP 131/91
[2020-03-11] MEDS ORDERED: PROMETHAZI6.25 MG/1 ORAL (10:34)
[2020-03-11] MEDS ORDERED: MEDROL DOSEPAK4 MG ORAL (10:34)
--- NOTE | 2020-03-11 10:37 | Emergency Room Report ---
History of Present Illness General Chief Complaint: Upper Respiratory Illness Source: Patient Present Illness HPI Patient presents with complaints of shortness of breath exacerbation Patient has had previous episodes Reports being diagnosed with pneumonia in the past Denies any chest pain or pleurisy with this denies any vomiting or diarrhea denies any fevers denies any back or flank pain and reports that it feels similar to her previous exacerbation She does have a mild cough with this denies any recent travel Allergies: Coded Allergies: NO KNOWN ALLERGIES (Unverified Allergy, Unknown, 08/22/16) COVID-19 Screening Contact w/high risk pt: No Recent Travel to affected area: No Experienced COVID-19 symptoms?: Yes COVID-19 symptoms experienced: Shortness of Breath, Cough COVID-19 Testing performed BULB GRADER: No Patient History Past Medical History: see triage record Last Menstrual Period: 02/26/2020 Now: No Reviewed Nursing Documentation: PMH: Agreed; PSxH: Agreed Nursing Documentation-PMH Past Medical History: No Stated History Hx Cardiac Problems: No - Ovarinan cyst, uterine fibroid Hx Hypertension: No Hx Pacemaker: No Hx Asthma: No Hx COPD: No Hx Diabetes: No Hx Cancer: No Hx Gastrointestinal Problems: Yes - Gastritis Hx Dialysis: No Hx Neurological Problems: Yes - Meningitis Hx Cerebrovascular Accident: Yes - 2013 Hx Seizures: No Review of Systems All Other Systems: negative except mentioned in HPI Physical Exam Vital Signs Date Time Temp Pulse Resp B/P (MAP) Pulse Ox O2 Delivery O2 Flow Rate FiO2 03/11/20 09:08 98.6 76 19 131/91 (104) 98 Room Air Sp02 EP Interpretation: reviewed, normal General Appearance: well appearing, no apparent distress Head: normocephalic, atraumatic Eyes: bilateral eye PERRL, bilateral eye EOMI ENT: hearing grossly normal, normal pharynx, TMs + canals normal, uvula midline Neck: full range of motion, supple, no meningismus, no bony tend Respiratory: no rhonchi, no respiratory distress, no retraction, no accessory muscle use, crackles - Fine crackles are noted in both mid to lower lobes Cardiovascular #1: normal peripheral pulses, regular rate, rhythm, no edema, no gallop, no JVD, no murmur Gastrointestinal: normal bowel sounds, non tender, soft, no mass, no organomegaly, non-distended, no guarding, no hernia, no pulsatile mass, no rebound Genitourinary: no CVA tenderness Musculoskeletal: normal inspection Neurologic: motor strength/tone normal, bdr III-XII nml as tested, oriented x3 , sensory intact, responsive Psychiatric: mood/affect normal Skin: no rash Lymphatic: normal inspection, no adenopathy Medical Decision Making Diagnostic Impression: Primary Impression: reactive airway disease ER Course Given the patient's history and presentation multiple differentials are in consideration Including but not limited to pneumonia, covid-19, URI, reactive airway disease Patient has had multiple x-rays in the past We have 1 in the system from 1 month ago which was negative I did not feel that this was required to be repeated Patient requires improved outpatient follow-up with primary physician also thermostatic controls supervisor given her previous history of smoking consideration for emphysema development Is entertained and patient requires improved outpatient follow-up Last Vital Signs Date Time Temp Pulse Resp B/P (MAP) Pulse Ox O2 Delivery O2 Flow Rate FiO2 03/11/20 10:12 76 19 Room Air 03/11/20 09:08 98.6 131/91 98 Status: improved Disposition: HOME, SELF-CARE Condition: Improved Scripts Promethazine Hcl (PROMETHAZINE HCL*) 6.25 Mg/5 Ml Syrup 5 ML ORAL Q8H for 7 Days, #120 ML 0 Refills Prov: Neris Glasgow 03/11/20 Methylprednisolone (Methylprednisolone*) 4MG Dspk 4 MG ORAL DIRECTED for 6 Days, #21 EA 0 Refills Day 1: Two tablets before breakfast, one after lunch, one after dinner, and two at bedtime. If started late in the day, take all six tablets at once or divide into two or three doses, unless otherwise directed by prescriber. Day 2: One tablet before breakfast, one after lunch, one after dinner, and two at bedtime Day 3: One tablet before breakfast, one after lunch, one after dinner, and one at bedtime Day 4: One tablet before breakfast, one after lunch, and one at bedtime Day 5: One tablet before breakfast and one at bedtime Day 6: One tablet before breakfast Prov: Neris Glasgow DO 03/11/20 Referrals: NON PHYSICIAN (PCP) [facility] Psych ER - Peds ER - Patient Instructions: Asthma, Acute Bronchospasm Additional Instructions: Patient is provided with the discharge instructions notified to follow up with primary doctor in the next 2-3 days otherwise return to the er with any worsening symptoms. Please note that this report is being documented using [employer] technology. This can lead to erroneous entry secondary to incorrect interpretation by the dictating instrument. Neris Glasgow DO Mar 11, 2020 10:37
[2020-03-11 10:58] VITALS: BP 131/91
== END 2020-03-11 11:00 | disposition home or self-care (01) ==
LOC: EMR 09:25
DX: J45.909 Unspecified asthma, uncomplicated (principal); Z86.73 Personal history of transient ischemic attack (TIA), and cerebral infarction without residual deficits; Z87.42 Personal history of other diseases of the female genital tract; Z86.61 Personal history of infections of the central nervous system
CPT/HCPCS: 99282; J7512

== ENCOUNTER 2020-04-10 10:47 | Emergency (ER) | payer MEDICAID ==
[~2020-04-10] VITALS: Ht 160 cm; Wt 67.1 kg
--- NOTE | 2020-04-10 10:59 | NUR ---
ED Nurse Note: Patient walked into ED from home c/o blood in stool since April 05. Patient states she has had intermittent diarrhea since Sunday, no change in appetite. Patient states stool werner had dark, tarry appearance. No c/o pain. Patient AxO x 4, on the programming instructor, bed in lowest position.
[2020-04-10 11:10] VITALS: BP 139/85
[2020-04-10] MEDS ORDERED: Omnipaque-300 100ml vial INJ PRN (11:30)
--- NOTE | 2020-04-10 11:38 | Emergency Room Report ---
History of Present Illness General Chief Complaint: Gastrointestinal Bleed Source: Patient Present Illness HPI 44-year-old female presents after increased abdominal pain. She reports having increased epigastric discomfort. Associated bloody stools which she reports having mixed color. She states that she had eaten some chicken recently but denies any definite bad food exposure. She had not been vomiting. Denies any weight loss. No fever. Denies feeling dizzy or lightheaded. Denies prior history of anemia. Prior history of fibroids. Allergies: Coded Allergies: NO KNOWN ALLERGIES (Unverified Allergy, Unknown, 08/22/16) COVID-19 Screening Contact w/high risk pt: No Recent Travel to affected area: No Experienced COVID-19 symptoms?: No COVID-19 symptoms experienced: Shortness of Breath, Cough COVID-19 Testing performed TOMBSTONE CARVER: No Patient History Past Medical History: see triage record Last Menstrual Period: 04/03/20 Now: No Reviewed Nursing Documentation: PMH: Agreed; PSxH: Agreed Nursing Documentation-PMH Past Medical History: No History, Except For Hx Hypertension: No Hx Pacemaker: No Hx Asthma: No Hx COPD: No Hx Diabetes: No Hx Cancer: No Hx Gastrointestinal Problems: Yes - Gastritis Hx Dialysis: No Hx Neurological Problems: Yes - Meningitis Hx Cerebrovascular Accident: Yes - 2013 Hx Seizures: No Review of Systems All Other Systems: negative except mentioned in HPI Physical Exam Vital Signs Date Time Temp Pulse Resp B/P (MAP) Pulse Ox O2 Delivery O2 Flow Rate FiO2 04/10/20 10:53 98.2 76 16 139/85 (103) 98 Room Air Sp02 EP Interpretation: reviewed, normal General Appearance: normal inspection, well appearing, no apparent distress, alert, GCS 15 Head: atraumatic ENT: normal ENT inspection, hearing grossly normal, normal voice Neck: normal inspection, full range of motion, supple, no bony tend Respiratory: normal inspection, lungs clear, normal breath sounds, no respiratory distress, no retraction, no wheezing Cardiovascular #1: regular rate, rhythm, no edema Gastrointestinal: normal inspection, normal bowel sounds, non tender, soft, no guarding, no hernia Genitourinary: no CVA tenderness Musculoskeletal: normal inspection, back normal, normal range of motion Neurologic: alert, motor strength/tone normal, unit manager III-XII nml as tested, oriented x3, responsive, speech normal, normal inspection Psychiatric: normal inspection, judgement/insight normal, mood/affect normal Medical Decision Making Diagnostic Impression: Primary Impression: Abdominal pain ER Course Patient presented for bloody stools. Differential diagnosis include was not limited to gastritis, colitis, anemia among others. Because of complexity of patient's case laboratory tests and imaging studies were ordered. Patient was noted to have some bloody stools per report. Had normal vital signs. Laboratory testing was unchanged from previous and patient does not show any evidence of significant anemia. Patient was advised to follow-up with GI for further evaluation and treatment. She is given prescription for Flagyl . CT imaging showed some moderate fecal retention. Patient was advised alcohol cessation. Patient was given prescription for lactulose and advised on use. She is also advised to have fibroids rechecked with her BENEFIT DIRECTOR. She is advised to return if worse. The patient is advised to follow up with primary care doctor in 1-2 days. Patient is advised to return if any worsening condition or if any changes in status that are concerning. This report is dictated with [email or web address] director of event marketing software which may occasionally lead to discrepancies related to use of this software. Labs Test 04/10/20 11:03 04/10/20 11:30 Urine Color Pale yellow Urine Appearance Clear Urine pH 7 (4.5-8.0) Urine Specific [place] 1.005 (1.005-1.035) Urine Protein Negative (NEGATIVE) Urine Glucose (UA) Negative (NEGATIVE) Urine Ketones Negative (NEGATIVE) Urine Blood Negative (NEGATIVE) Urine Nitrite Negative (NEGATIVE) Urine Bilirubin Negative (NEGATIVE) Urine Urobilinogen Normal MG/DL (0.0-1.0) Urine Leukocyte Esterase 1+ (NEGATIVE) Urine RBC 0 /HPF (0 - 2) Urine WBC 0-2 /HPF (0 - 2) Urine Squamous Epithelial Cells Occasional /LPF Urine Bacteria Occasional /HPF (NONE) Urine HCG, Qualitative Negative (NEGATIVE) White Blood Count 5.5 K/UL (4.8-10.8) Red Blood Count 4.59 M/UL (4.20-5.40) Hemoglobin 12.7 G/DL (12.0-16.0) Hematocrit 40.6 % (37.0-47.0) Mean Corpuscular Volume 88 FL (80-99) Mean Corpuscular Hemoglobin 27.7 PG (27.0-31.0) Mean Corpuscular Hemoglobin Concent 31.4 G/DL (32.0-36.0) Red Cell Distribution Width 14.7 % (11.6-14.8) Platelet Count 373 K/UL (150-450) Mean Platelet Volume 6.4 FL (6.5-10.1) Neutrophils (%) (Auto) 54.9 % (45.0-75.0) Lymphocytes (%) (Auto) 29.1 % (20.0-45.0) Monocytes (%) (Auto) 6.8 % (1.0-10.0) Eosinophils (%) (Auto) 6.7 % (0.0-3.0) Basophils (%) (Auto) 2.6 % (0.0-2.0) Prothrombin Time 10.8 SEC (9.30-11.50) Prothromb Time International Ratio 1.0 (0.9-1.1) Activated Partial Thromboplast Time 21 SEC (23-33) Sodium Level 137 MMOL/L (136-145) Potassium Level 3.9 MMOL/L (3.5-5.1) Chloride Level 100 MMOL/L (98-107) Carbon Dioxide Level 26 MMOL/L (21-32) Anion Gap 11 mmol/L (5-15) Blood Urea Nitrogen 8 mg/dL (7-18) Creatinine 1.0 MG/DL (0.55-1.30) Estimat Glomerular Filtration Rate > 60 mL/min (>60) Glucose Level 100 MG/DL (74-106) Calcium Level 9.1 MG/DL (8.5-10.1) Total Bilirubin 0.4 MG/DL (0.2-1.0) Aspartate Amino Transf (AST/SGOT) 14 U/L (15-37) Alanine Aminotransferase (ALT/SGPT) 14 U/L (12-78) Alkaline Phosphatase 82 U/L (46-116) Total Protein 7.7 G/DL (6.4-8.2) Albumin 3.7 G/DL (3.4-5.0) Globulin 4.0 g/dL Albumin/Globulin Ratio 0.9 (1.0-2.7) Lipase 161 U/L (73-393) Last Vital Signs Date Time Temp Pulse Resp B/P (MAP) Pulse Ox O2 Delivery O2 Flow Rate FiO2 04/10/20 11:10 98.2 78 16 139/85 98 Room Air Status: improved Disposition: HOME, SELF-CARE Condition: Stable Scripts Lactulose (LACTULOSE) 10 Gm/15 Ml Solution 10 GM PO TID, #120 ML Prov: Partha Felder MD 04/10/20 Omeprazole (OMEPRAZOLE) 20 Mg Capsule.dr 20 MG ORAL DAILY, #30 CAP Prov: Partha Felder MD 04/10/20 Metronidazole* (FLAGYL*) 500 Mg Tablet 500 MG ORAL BID, #14 TAB Prov: Partha Felder MD 04/10/20 Partha Felder MD Apr 10, 2020 11:38
--- NOTE | 2020-04-10 11:40 | NUR ---
ED Nurse Note: 20 g IV started in right AC, blood collected and sent to lab.
[2020-04-10 11:44] LABS: APPEARANCE,URINE CLEAR; BILIRUBIN, URINE NEGATIVE (NEGATIVE); COLOR,URINE PALE YELLOW; GLUCOSE, URINE (UA) NEGATIVE (NEGATIVE); KETONES,URINE NEGATIVE (NEGATIVE); LEUKOCYTE ESTERASE ,URINE 1+ (NEGATIVE); NITRITE,URINE NEGATIVE (NEGATIVE); PH,URINE 7 (4.5-8.0); PROTEIN,URINE NEGATIVE (NEGATIVE); UROBILINOGEN,URINE NORMAL MG/DL (0.0-1.0)
--- NOTE | 2020-04-10 11:45 | NUR ---
ED Nurse Note: Consent for CT with contrast signed by patient.
[2020-04-10 11:57] LABS: BASOPHILS % (AUTO) 2.6 % (0.0-2.0); EOSINOPHILS % (AUTO) 6.7 % (0.0-3.0); HEMATOCRIT 40.6 % (37.0-47.0); HEMOGLOBIN 12.7 G/DL (12.0-16.0); LYMPHOCYTES % (AUTO) 29.1 % (20.0-45.0); MEAN CORPUSCULAR VOLUME 88 FL (80-99); MONOCYTES % (AUTO) 6.8 % (1.0-10.0); NEUTROPHILS % (AUTO) 54.9 % (45.0-75.0); PLATELET COUNT 373 K/UL (150-450); RED BLOOD COUNT 4.59 M/UL (4.20-5.40); RED CELL DISTRIBUTION WIDTH 14.7 % (11.6-14.8); WHITE BLOOD COUNT 5.5 K/UL (4.8-10.8)
[2020-04-10 12:02] LABS: ANION GAP 11 mmol/L (5-15); BLOOD UREA NITROGEN 8 mg/dL (7-18); CALCIUM 9.1 MG/DL (8.5-10.1); CARBON DIOXIDE 26 MMOL/L (21-32); CHLORIDE 100 MMOL/L (98-107); POTASSIUM 3.9 MMOL/L (3.5-5.1); SODIUM 137 MMOL/L (136-145)
[2020-04-10 12:07] LABS: ALANINE AMINOTRANSFERASE 14 U/L (12-78); ALBUMIN 3.7 G/DL (3.4-5.0); ALBUMIN/GLOBULIN RATIO 0.9 (1.0-2.7); ALKALINE PHOSPHATASE 82 U/L (46-116); ASPARTATE AMINO TRANSFERASE 14 U/L (15-37); BILIRUBIN,TOTAL 0.4 MG/DL (0.2-1.0)
[2020-04-10 12:53] VITALS: BP 137/80
--- NOTE | 2020-04-10 13:09 | NUR ---
ED Nurse Note: Patient taken to CT
--- NOTE | 2020-04-10 13:25 | NUR ---
ED Nurse Note: Patient returned from CT
[2020-04-10] MEDS ORDERED: OMEPRAZOLE20 M2 ORAL (13:42)
[2020-04-10] MEDS ORDERED: METRONIDAZOLE500 MG ORAL (13:42)
--- NOTE | 2020-04-10 13:55 | Diagnostic Imaging Report ---
EXAM: CT Abdomen and Pelvis With Intravenous Contrast CLINICAL HISTORY: ABD PAIN TECHNIQUE: Axial computed tomography images of the abdomen and pelvis with intravenous contrast. CTDI is 5.9 mGy and DLP is 288.8 mGy-cm. One or more of the following dose reduction techniques were used: automated exposure control, adjustment of the mA and/or kV according to patient size, use of iterative reconstruction technique. COMPARISON: CT abdomen and pelvis 05/18/19 FINDINGS: Lung bases: Unremarkable. No mass. No consolidation. ABDOMEN: Liver: Unremarkable. No mass. Gallbladder and bile ducts: Unremarkable. No calcified stones. No ductal dilation. Pancreas: Unremarkable. No mass. No ductal dilation. Spleen: Unremarkable. No splenomegaly. Adrenals: Unremarkable. No mass. Kidneys and ureters: Unremarkable. No solid mass. No hydronephrosis. Stomach and bowel: Moderate stool in colon. Query constipation. No bowel obstruction. Thickening of the gastric wall likely due to underdistention. PELVIS: Appendix: Normal appendix. Bladder: Unremarkable. No mass. Reproductive: Multiple uterine fibroids, for example right fundal exophytic 4.2 x 5 cm fibroid, (previously 3.8 x 4.5 cm) and 4.8 cm left uterine fundal myometrial fibroid, previously 4.2 cm. ABDOMEN and PELVIS: Intraperitoneal space: Small free fluid in the pelvis likely physiologic. No free air. Bones/joints: Subacute to old right anterior rib fracture. No dislocation. Soft tissues: Unremarkable. Vasculature: Unremarkable. No abdominal aortic aneurysm. Lymph nodes: Unremarkable. No enlarged lymph nodes. IMPRESSION: 1. Multiple uterine fibroids, for example right fundal exophytic 4.2 x 5 cm fibroid, (previously 3.8 x 4.5 cm) and 4.8 cm left uterine fundal myometrial fibroid, previously 4.2 cm. Slightly larger than prior study. 2. Normal appendix. 3. Moderate stool in colon. Query constipation. No bowel obstruction. 4. Thickening of the gastric wall likely due to underdistention.
[2020-04-10] MEDS ORDERED: LACTULOSE10 GM/154 PO (14:05)
[2020-04-10 14:17] VITALS: BP 126/79
--- NOTE | 2020-04-10 14:17 | NUR ---
ER DISCHARGE NOTE: Patient is cleared to be discharged per ERMD, pt is aox4, on room air, with stable vital signs. pt was given dc and prescription instructions, pt was able to verbalize understanding, pt id band and iv site removed without complications. pt is able to ambulate with steady gait. pt took all belongings.
== END 2020-04-10 14:17 | disposition home or self-care (01) ==
LOC: EMR 11:11
DX: R10.9 Unspecified abdominal pain (principal); K92.1 Melena; D25.9 Leiomyoma of uterus, unspecified; Z86.61 Personal history of infections of the central nervous system; Z86.73 Personal history of transient ischemic attack (TIA), and cerebral infarction without residual deficits
CPT/HCPCS: 36415; 74177; 80053; 81003; 81025; 83690; 85025; 85610; 85730; 96374; Q9967; S0028; Z7502; 99284

== ENCOUNTER 2020-05-09 09:30 | Emergency (ER) | payer MEDICAID ==
[~2020-05-09] VITALS: Ht 160 cm; Wt 67.1 kg
[~2020-05-09 09:30] MED LIST changes: +LACTULOSE10 GM/154 PO; +OMEPRAZOLE20 M2 ORAL
[2020-05-09 09:37] VITALS: BP 147/78
[2020-05-09] MEDS ORDERED: Albuterol 90mcg Inhaler 8gm INH ONE (09:45)
--- NOTE | 2020-05-09 09:47 | NUR ---
ED Nurse Note: Pt from home walked in due to wheezing and states she ran out of albuterol. AAO x4, ambulatory with non labored breathing. Speaks in clear sentences.
--- NOTE | 2020-05-09 09:50 | NUR ---
ED Nurse Note: crime scene technician Ralph at the bed side fro CXR.
--- NOTE | 2020-05-09 09:51 | Emergency Room Report ---
History of Present Illness General Chief Complaint: Dyspnea/Respdistress Source: Patient Present Illness HPI Patient is a 44-year-old female history of chronic bronchitis on albuterol 3 times daily who presents to the ER requesting a albuterol refill. She states that she ran out yesterday. She states that she does not have a primary care physician to follow-up with. She complains of cough which is nonproductive. She denies any fever or chills. She denies any chest pain or shortness of breath. She denies any abdominal pain nausea or vomiting. Allergies: Coded Allergies: NO KNOWN ALLERGIES (Unverified Allergy, Unknown, 08/22/16) COVID-19 Screening Contact w/high risk pt: No Recent Travel to affected area: No Experienced COVID-19 symptoms?: No COVID-19 symptoms experienced: Shortness of Breath, Cough COVID-19 Testing performed LIBRARY HELPER: No Patient History Last Menstrual Period: 05/05/20 Now: No Reviewed Nursing Documentation: PMH: Agreed; PSxH: Agreed Nursing Documentation-PMH Past Medical History: No History, Except For Hx Hypertension: No Hx Pacemaker: No Hx Asthma: No - bronchitis Hx COPD: No Hx Diabetes: No Hx Cancer: No Hx Gastrointestinal Problems: Yes - Gastritis Hx Dialysis: No Hx Neurological Problems: Yes - Meningitis Hx Cerebrovascular Accident: Yes - 2013 Hx Seizures: No Review of Systems All Other Systems: negative except mentioned in HPI Physical Exam Vital Signs Date Time Temp Pulse Resp B/P (MAP) Pulse Ox O2 Delivery O2 Flow Rate FiO2 05/09/20 09:37 97.9 89 16 147/78 (101) 99 Room Air Sp02 EP Interpretation: reviewed, normal General Appearance: no apparent distress, alert, GCS 15, non-toxic Head: normocephalic, atraumatic Eyes: bilateral eye normal inspection, bilateral eye PERRL ENT: hearing grossly normal, normal pharynx, no angioedema, normal voice Neck: full range of motion, supple/symm/no masses Respiratory: chest non-tender, no respiratory distress, no retraction, no accessory muscle use, speaking full sentences, other - Scattered wheezes Cardiovascular #1: regular rate, rhythm, no edema Gastrointestinal: non tender, soft Rectal: deferred Musculoskeletal: normal range of motion, no calf tenderness, no lower extremity edema 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 Oxygen saturation 99% on room air. Chest x-ray demonstrates no acute cardiopulmonary pathology. Patient given albuterol inhaler. After discussing risks and benefits of further diagnostics, treatment plans, as well as indications for and risks of admission, the patient is agreeable to being discharged home. I have explained that their evaluation and treatment in the emergency department today is an important step towards them achieving better health but that their evaluation today is not intended to replace further evaluation and treatment by a physician in their local clinic. I have explained that while the current findings suggest no immediate life threatening emergency they will require further evaluation and treatment by a physician of their choice in their area. They understand that it will be necessary for them to review the final reports of their ED visit with their clinic physician. We have reviewed indications for return to the Emergency Department. I have explained that additional time may need to pass and/or additional testing as an outpatient may be necessary before a definitive diagnosis can be made. They tell me they are willing to follow up as instructed within the timeframe I recommend. They appear to understand what we discussed. Additionally they understand that if they are unable to be seen by an outpatient physician they are welcome, and in fact should, return to the Emergency Department for a repeat evaluation. The patient is stable at time of discharge. Chest X-Ray Diagnostic Results Chest X-Ray Diagnostic Results : Chest X-Ray Ordered: Yes Indication: Other - Cough EP Interpretation: Yes Interpretation: no consolidation, no effusion, no pneumothorax, no acute cardiopulmonary disease Impression: No acute disease Electronically Signed by: Anne Bhakta MD Last Vital Signs Date Time Temp Pulse Resp B/P (MAP) Pulse Ox O2 Delivery O2 Flow Rate FiO2 05/09/20 09:37 97.9 89 16 147/78 (101) 99 Room Air Disposition: HOME, SELF-CARE Condition: Stable Scripts Albuterol Sulfate (VENTOLIN HFA) 18 Gm Hfa.aer.ad 2 PUFFS INH EVERY 6 HOURS, #18 GM 0 Refills Prov: Anne Bhakta M.D. 05/09/20 Additional Instructions: The patient was provided with discharge instructions, notified to follow-up with a primary care doctor and or specialist in the next 24-48 hours, and to return to the ED if they have worsening of their symptoms. Please note that this report is being documented using [employer] technology. This can lead to erroneous entry secondary to incorrect interpretation by the dictating instrument. Anne Bhakta M.D. May 09, 2020 09:51
[2020-05-09] MEDS ORDERED: VENTOLIN HFA18 GM INH (10:00)
[2020-05-09 10:10] VITALS: BP 135/76
--- NOTE | 2020-05-09 10:13 | Diagnostic Imaging Report ---
EXAM: XR Chest, 1 View CLINICAL HISTORY: COUGH TECHNIQUE: Frontal view of the chest. COMPARISON: Chest radiograph on 02/09/2020 FINDINGS: Hardware: None. Lungs/pleura: Hyperinflation of the lungs. No focal consolidation. No pleural effusion or pneumothorax. Heart/mediastinum: Normal. No cardiomegaly. Soft tissues: Unremarkable. Bones: No acute fracture. Upper abdomen: Normal. IMPRESSION: No focal consolidation.
== END 2020-05-09 10:10 | disposition home or self-care (01) ==
LOC: EMR 09:40
DX: J42 Unspecified chronic bronchitis (principal); Z86.73 Personal history of transient ischemic attack (TIA), and cerebral infarction without residual deficits; Z86.61 Personal history of infections of the central nervous system
CPT/HCPCS: 71045; Z7502; 99283

== ENCOUNTER 2020-09-03 22:51 | Emergency (ER) | payer MEDICAID ==
[~2020-09-03] VITALS: Ht 160 cm; Wt 68.0 kg
[2020-09-03 23:05] VITALS: BP 125/75
--- NOTE | 2020-09-03 23:20 | Emergency Room Report ---
History of Present Illness General Chief Complaint: Upper Respiratory Illness Source: Patient Present Illness HPI This is a 44-year-old female with a history of asthma. Much better controlled since she started on Wixela and Singulair in addition to her albuterol. She presents with chief plaint of shortness of breath. Onset started yesterday. Better with inhaler. But only lasting for 2 to 3 hours. No fever chills but no congestion. She complained of some left-sided chest pain. Is been ongoing for 24 hours. Also felt tingliness in her fingers and toes. She felt dizzy. Denies any other complaint. No exertional component. No diaphoresis. Allergies: Coded Allergies: NO KNOWN ALLERGIES (Unverified Allergy, Unknown, 08/22/16) COVID-19 Screening Contact w/high risk pt: No Recent Travel to affected area: No Experienced COVID-19 symptoms?: No COVID-19 symptoms experienced: Shortness of Breath, Cough COVID-19 Testing performed MANAGER MANAGING: No Patient History Past Medical History: see triage record, old chart reviewed, asthma Past Surgical History: none Pertinent Family History: none Social History: Denies: smoking Last Menstrual Period: n/a Now: No Immunizations: other Reviewed Nursing Documentation: PMH: Agreed; PSxH: Agreed Nursing Documentation-PMH Past Medical History: No History, Except For Hx Hypertension: No Hx Pacemaker: No Hx Asthma: No - bronchitis Hx COPD: No Hx Diabetes: No Hx Cancer: No Hx Gastrointestinal Problems: Yes - Gastritis Hx Dialysis: No Hx Neurological Problems: Yes - Meningitis Hx Cerebrovascular Accident: Yes - 2013 Hx Seizures: No Review of Systems Eye: Denies: eye pain, blurred vision ENT: Denies: ear pain, nose congestion, throat swelling Respiratory: Reports: cough, shortness of breath Cardiovascular: Reports: chest pain; Denies: palpitations Gastrointestinal: Denies: abdominal pain, diarrhea, nausea, vomiting Musculoskeletal: Denies: back pain, joint pain Skin: Denies: rash Neurological: Denies: headache, numbness Endocrine: Denies: increased thirst, increased urine Hematologic/Lymphatic: Denies: easy bruising All Other Systems: negative except mentioned in HPI Physical Exam Vital Signs Date Time Temp Pulse Resp B/P (MAP) Pulse Ox O2 Delivery O2 Flow Rate FiO2 09/03/20 23:03 98.1 74 18 125/75 (92) 99 Room Air Vitals normal Sp02 EP Interpretation: reviewed, normal General Appearance: well appearing, no apparent distress, alert Head: normocephalic, atraumatic Eyes: bilateral eye PERRL, bilateral eye EOMI ENT: hearing grossly normal, normal pharynx Neck: full range of motion, supple, no meningismus Respiratory: chest non-tender, lungs clear, normal breath sounds Cardiovascular #1: regular rate, rhythm, no murmur Gastrointestinal: normal bowel sounds, non tender, no mass, no organomegaly, no bruit, non-distended Musculoskeletal: back normal, normal range of motion, gait/station normal Psychiatric: anxious Medical Decision Making Diagnostic Impression: Primary Impression: Asthma exacerbation Qualified Codes: J45.21 - Mild intermittent asthma with (acute) exacerbation Additional Impression: Chest pain Qualified Codes: R07.9 - Chest pain, unspecified ER Course Patient presents with asthma exacerbation. She also had chest pain. I suspect is probably anxiety related. Was normal but radiologist that there was a spiculated 0.8 cm nodule in the left apex. CT scan was done and it was negative. No evidence of ACS, PE, dissection to name a few. Patient felt better now. Will discharge home. EKG Diagnostic Results Troponin ordered: Yes Rate: normal Rhythm: NSR ST Segments: no acute changes ASA given to the pt in ED: Yes Chest X-Ray Diagnostic Results Chest X-Ray Diagnostic Results : Chest X-Ray Ordered: Yes # of Views/Limited/Complete: 1 View Indication: Chest Pain EP Interpretation: Yes Interpretation: no consolidation, no effusion, no pneumothorax, no acute cardiopulmonary disease Impression: No acute disease Electronically Signed by: Lars Palacios MD CT/MRI/US Diagnostic Results CT/MRI/US Diagnostic Results : Imaging Test Ordered: CT chest Impression Read by radiologist. Negative. Last Vital Signs Date Time Temp Pulse Resp B/P (MAP) Pulse Ox O2 Delivery O2 Flow Rate FiO2 09/03/20 23:05 74 18 Room Air 09/03/20 23:05 98.1 125/75 99 Status: improved Disposition: HOME, SELF-CARE Condition: Stable Scripts Prednisone* (PREDNISONE*) 20 Mg Tablet 40 MG ORAL DAILY, #10 TAB Prov: Lars Palacios MD 09/04/20 Referrals: NON PHYSICIAN (PCP) Additional Instructions: Follow-up with your DrOrlin In 7 days. Return if symptoms worsen. Lars Palacios MD Sep 03, 2020 23:20
[2020-09-03] MEDS ORDERED: Ketorolac 30mg Inj IV ONE (23:30)
--- NOTE | 2020-09-03 23:34 | Diagnostic Imaging Report ---
EXAM: XR Chest, 1 View CLINICAL HISTORY: SOB TECHNIQUE: Frontal view of the chest. COMPARISON: 05/09/2020. FINDINGS: Lungs: The lungs are well aerated. Pleural space: No pleural effusions. No pneumothoraces. Heart: Cardiomediastinal silhouette unremarkable. Mediastinum: See above. Bones/joints: Osteopenia. Other findings: A 0.8 cm spiculated nodule is noted at the left apex. IMPRESSION: 1. 0.8 cm spiculated nodule at the left apex. 2. CT imaging of the chest without contrast is advised for further assessment. 3. Osteopenia.
--- NOTE | 2020-09-04 00:22 | Diagnostic Imaging Report ---
EXAM: CT Chest Without Intravenous Contrast CLINICAL HISTORY: MASS TECHNIQUE: Axial computed tomography images of the chest without intravenous contrast. CTDI is 3.50 mGy and DLP is 118.60 mGy-cm. One or more of the following dose reduction techniques were used: automated exposure control, adjustment of the mA and/or kV according to patient size, use of iterative reconstruction technique. COMPARISON: 05/09/2020. FINDINGS: Lungs: Evaluation of the left pulmonary parenchyma reveals minimal subsegmental atelectasis and scarring at the left lung base. No left pulmonary effusion or focal abnormality. The airway is patent. Pleural space: Evaluation of the right pulmonary parenchyma reveals no pleural effusion or focal abnormality. No pneumothorax. Heart: Heart is normal in size. No significant pericardial effusion. Mediastinum: Although evaluation is limited due to lack of intravenous contrast administration, no pathologic hilar, mediastinal, or axial lymphadenopathy. Thyroid: Thyroid gland is unremarkable. Bones/joints: Alignment of the thoracic spine is within normal limits. No acute fracture. Soft tissues: Unremarkable. Vasculature: Unremarkable. No thoracic aortic aneurysm. Lymph nodes: Unremarkable. No enlarged lymph nodes. Liver: Probable mild fatty infiltration of the liver. IMPRESSION: 1. No discrete focal pulmonary parenchymal abnormality detected. 2. No pleural effusion. 3. No suggestion of hilar, mediastinal, or axillary lymphadenopathy.
[2020-09-04] MEDS ORDERED: PREDNISONE20 MG ORAL (00:35)
[2020-09-04 00:40] VITALS: BP 118/72
--- NOTE | 2020-09-04 12:56 | Cardiology Report ---
APPROVED REPORT EKG Measurement Heart [id number] MD [id number] <Conclusion> Normal sinus rhythm with sinus arrhythmia Normal ECG
== END 2020-09-04 00:40 | disposition home or self-care (01) ==
LOC: EMR 23:09
DX: J45.21 Mild intermittent asthma with (acute) exacerbation (principal); R07.9 Chest pain, unspecified; Z86.73 Personal history of transient ischemic attack (TIA), and cerebral infarction without residual deficits
CPT/HCPCS: 71045; 71250; 84484; 93005; 96374; J1885; Z7502; 99284

== ENCOUNTER 2020-12-16 20:37 | Emergency (ER) | payer MEDICAID ==
[~2020-12-16] VITALS: Ht 160 cm; Wt 82.6 kg
--- NOTE | 2020-12-16 20:58 | Emergency Room Report ---
History of Present Illness General Chief Complaint: General Complaint Source: Patient Present Illness HPI Patient is a 44-year-old female past medical history of asthma ER requesting a chest x-ray. Patient states that she has had nasal and chest congestion for the past week. She states that she had a negative Covid test 3 days ago and her doctor advised her to get a chest x-ray to make sure that she does not have anything going on in her lungs. She denies any fever or chills. She denies any chest pain. She denies any cough or sputum production. She denies any shortness of breath. Patient states she had some wheezing earlier today which resolved after using her home inhalers. Allergies: Coded Allergies: NO KNOWN ALLERGIES (Unverified Allergy, Unknown, 08/22/16) COVID-19 Screening Contact w/high risk pt: No Recent Travel to affected area: No Experienced COVID-19 symptoms?: No COVID-19 symptoms experienced: Shortness of Breath, Cough COVID-19 Testing performed CUPOLA TENDER: Yes - 3 days ago COVID-19 Screening: Negative COVID-19 COVID-19 Testing Source: na Patient History Last Menstrual Period: november 29 Now: No Reviewed Nursing Documentation: PMH: Agreed; PSxH: Agreed Nursing Documentation-PMH Hx Hypertension: No Hx Pacemaker: No Hx Asthma: No - bronchitis Hx COPD: No Hx Diabetes: No Hx Cancer: No Hx Gastrointestinal Problems: Yes - Gastritis Hx Dialysis: No Hx Neurological Problems: Yes - Meningitis Hx Cerebrovascular Accident: Yes - 2013 Hx Seizures: No Review of Systems All Other Systems: negative except mentioned in HPI Physical Exam Vital Signs Date Time Temp Pulse Resp B/P (MAP) Pulse Ox O2 Delivery O2 Flow Rate FiO2 12/16/20 20:43 98.2 84 18 126/83 (97) 98 Room Air Sp02 EP Interpretation: reviewed, normal General Appearance: no apparent distress, alert, GCS 15, non-toxic Head: normocephalic, atraumatic Eyes: bilateral eye normal inspection, bilateral eye PERRL ENT: hearing grossly normal, normal pharynx, no angioedema, normal voice, nasal congestion Neck: full range of motion, supple/symm/no masses Respiratory: chest non-tender, lungs clear, normal breath sounds, speaking full sentences Cardiovascular #1: regular rate, rhythm Gastrointestinal: non tender, soft, no guarding, no rebound Rectal: deferred Genitourinary: no CVA tenderness Musculoskeletal: normal range of motion Neurologic: applications support lead III-XII nml as tested, oriented x3 Psychiatric: no suicidal/homicidal ideation Skin: no rash Lymphatic: no adenopathy Medical Decision Making Diagnostic Impression: Primary Impression: Nasal congestion ER Course Patient's vital signs stable. Patient in no acute distress. She denies any shortness of breath or chest pain. Chest x-ray demonstrates no acute cardiopulmonary pathology. Possible seasonal allergy. We will try the patient on Zyrtec. Patient given a copy of her x-ray results. After discussing risks and benefits of further diagnostics, treatment plans, as well as indications for and risks of admission, the patient is agreeable to being discharged home. I have explained that their evaluation and treatment in the emergency department today is an important step towards them achieving better health but that their evaluation today is not intended to replace further evaluation and treatment by a physician in their local clinic. I have explained that while the current findings suggest no immediate life threatening emergency they will require further evaluation and treatment by a physician of their choice in their area. They understand that it will be necessary for them to review the final reports of their ED visit with their clinic physician. We have reviewed indications for return to the Emergency Department. I have explained that additional time may need to pass and/or additional testing as an outpatient may be necessary before a definitive diagnosis can be made. They tell me they are willing to follow up as instructed within the timeframe I recommend. They appear to understand what we discussed. Additionally they understand that if they are unable to be seen by an outpatient physician they are welcome, and in fact should, return to the E mergency Department for a repeat evaluation. The patient is stable at time of discharge. Chest X-Ray Diagnostic Results Chest X-Ray Diagnostic Results : Chest X-Ray Ordered: Yes # of Views/Limited/Complete: 1 View Indication: Other - Congestion EP Interpretation: Yes Interpretation: no consolidation, no effusion, no pneumothorax, no acute cardiopulmonary disease Impression: No acute disease Electronically Signed by: Anne Bhakta MD Last Vital Signs Date Time Temp Pulse Resp B/P (MAP) Pulse Ox O2 Delivery O2 Flow Rate FiO2 12/16/20 20:43 98.2 84 18 126/83 (97) 98 Room Air Disposition: HOME, SELF-CARE Condition: Stable Scripts Cetirizine Hcl* (ZYRTEC*) 10 Mg Tablet 10 MG ORAL DAILY, #30 TAB 0 Refills Prov: Anne Bhakta M.D. 12/16/20 Referrals: NON PHYSICIAN (PCP) Additional Instructions: The patient was provided with discharge instructions, notified to follow-up with a primary care doctor and or specialist in the next 24-48 hours, and to return to the ED if they have worsening of their symptoms. Please note that this report is being documented using [employer] technology. This can lead to erroneous entry secondary to incorrect interpretation by the dictating instrument. Anne Bhakta M.D. Dec 16, 2020 20:58
[2020-12-16 20:59] VITALS: BP 129/82
--- NOTE | 2020-12-16 21:00 | NUR ---
Patient arrived to ER via ambulatory c/o nasal congestion. New orders received from EDP and carried out. All procedures were explain to the patient . Patient verbalized understanding. Safety and comfort measures taken: bed set in low position, frequent rounds, call light within reach. Will continue monitoring the patient during the sift.
[2020-12-16] MEDS ORDERED: ZYRTEC10 MG ORAL (21:32)
--- NOTE | 2020-12-16 21:46 | Diagnostic Imaging Report ---
EXAM: XR Chest, 1 View CLINICAL HISTORY: COUGH TECHNIQUE: Frontal view of the chest. COMPARISON: 09/03/2020 FINDINGS: Lungs: Unremarkable. No consolidation. Pleural space: Unremarkable. No pneumothorax. Heart: Unremarkable. No cardiomegaly. Mediastinum: Unremarkable. Bones/joints: No acute abnormality IMPRESSION: 1. No acute cardiopulmonary disease. 2. If there is continued concern consider frontal and lateral chest radiographs or CT.
[2020-12-16 22:03] VITALS: BP 129/87
--- NOTE | 2020-12-16 22:04 | NUR ---
Patient was discharge home as EDP ordered. All vital signs were taken within normal range. Patient . All prescriptions and instructions were given to the patient . Patient verbalized understanding. patient left the hospital in stable condition .
== END 2020-12-16 22:05 | disposition home or self-care (01) ==
LOC: EMR 20:55
DX: R09.81 Nasal congestion (principal); Z86.61 Personal history of infections of the central nervous system; Z86.73 Personal history of transient ischemic attack (TIA), and cerebral infarction without residual deficits
CPT/HCPCS: 71045; Z7502; 99283